=== PATIENT | female | born 1980 | race Caucasian/White ===

== ENCOUNTER 2024-02-14 09:57 | Emergency (ER) | payer MEDICARE, SELFPAY ==
[2024-02-14 10:21] VITALS: BP 117/69; PULSE 66; RESP 18; TEMP 36.6; O2SAT 100; BMI 22.7
[2024-02-14] MEDS: HYDROcodone-acetaminophen 7.5-325 mg Tablet 1 TAB PO (11:52)
--- NOTE | 2024-02-14 11:52 | ED_ITS ---
HPI - Dental/Oral General: Chief complaint: Dental/Oral Stated complaint: rt side of face swollen Time Seen by Provider: 02/14/24 11:35 Source: patient Mode of arrival: ambulatory Limitations: no limitations History of Present Illness: 43-year-old female states she has had so me right sided dental pain for the last 2 days states she has very poor dentition has a history of drug abuse states pains in right upper molar regions with some swelling denies any fever. Associated symptoms: Denies fever(s) Related Data Previous Rx's Medication Instructions Recorded cephalexin 500 mg capsule 500 mg PO TID 7 days #21 caps 02/14/24 Allergies Allergy/AdvReac Type Severity Reaction Status Date / Time Unable to Assess Allergy Unverified 02/14/24 10:29 Review of Systems Const: Denies: fever(s), chills, body aches or change in appetite ENMT: Reports: dental pain; Denies: throat pain Card: Denies: chest pain Resp: Denies: dyspnea GI: Denies: abdominal pain, nausea, vomiting or diarrhea Musc: Denies: neck pain or back pain Skin/Breast: Denies: rash Neuro: Denies: headache(s) Physical Exam Const: COMMON NORMALS: no acute distress, patient oriented x3 and healthy appearing HENMT: COMMON NORMALS: normocephalic and atraumatic HEAD & SCALP: normocephalic and atraumatic OTHER: Very poor dentition slight swelling to upper molar gumline with small abscess no trismus Eye: COMMON NORMALS: Equal, round and reactive pupils present and EOMs intact bilaterally PUPIL: Yes Equal, round and reactive pupils present Neck/C-Spine: COMMON NORMALS: full ROM and supple Chest: COMMONS NORMALS: normal inspection of the chest Resp: COMMON NORMALS: normal respiratory effort Cardio: COMMON NORMALS: regular rate, regular rhythm and No murmurs present (Cardio) RATE: regular rate RHYTHM: regular rhythm Extremity: COMMON NORMALS: normal to inspection and full ROM Neuro: COMMON NORMALS: patient oriented x3, moves all extremities and no focal motor deficits Psych: COMMON NORMALS: mental status grossly normal, Normal thought process present and cooperative THOUGHT PROCESS: Normal thought process present Skin: COMMON NORMALS: no rashes or lesions noted and no wounds GENERAL SKIN EXAM: no rashes or lesions noted Procedures Abscess I/D Site: other (dental) Side (if applicable): left Technique: needle aspiration Irrigation: No Packing used?: none Course Vital Signs: Vital signs: Vital Signs Temperature 97.8 F 02/14/24 10:21 Pulse Rate 66 02/14/24 10:21 Respiratory Rate 18 02/14/24 10:21 Blood Pressure 117/69 02/14/24 10:21 Pulse Oximetry 100 02/14/24 10:21 Oxygen Delivery Me thod Room Air 02/14/24 10:21 MDM - Dental/Oral Medical Decision Making Patient presents here with toothache with a small dental abscess did incise with a 18-gauge needle minimal drainage will start antibiotics follow-up with dentist return if worsening. No radiology studies performed this visit Discharge Plan Discharge Patient Disposition: Home Clinical Impression: Toothache Condition: Stable Prescriptions: New cephalexin 500 mg capsule 500 mg PO TID 7 Days Qty: 21 0RF Discharge Orders: Discharge ED (Routine); Ordered 02/14/24 Ordered By: Megan Bautista Patient Instructions: Toothache (ED) Coding Level of Care Code ED Compression Molding Machine Setter for Jose Alberto Briones
== END 2024-02-14 11:57 | disposition home or self-care (01) ==
PROVIDERS: Emergency Provider Emergency Medicine
DX: K08.89 Other specified disorders of teeth and supporting structures (principal)
CPT/HCPCS: 41800; 99283

== ENCOUNTER 2024-02-15 13:49 | Inpatient (IN) | payer MEDICARE, SELFPAY ==
--- NOTE | 2024-02-15 14:00 | ED.C_ITS ---
HPI - Psych 2 General: Chief Complaint: Psychiatric Symptoms Stated Complaint: mhe Time Seen by Provider: 02/15/24 13:51 Source: patient, EMS and police Mode of arrival: EMS Limitations: no limitations History of Present Illness: 43-year-old female who just recently mov ed here from [place] per family she has been out of her psychiatric meds patient had gotten out of her daughter's car today and traffic was walking into traffic please were called patient's had erratic behavior here she has flight of ideas. Associated symptoms: Reports delusions Related Data Previous Rx's Medication Instructions Recorded cephalexin 500 mg capsule 500 mg PO TID 7 days #21 caps 02/14/24 Allergies Allergy/AdvReac Type Severity Reaction Status Date / Time Unable to Assess Allergy Unverified 02/14/24 10:29 Review of Systems 2 Const: Denies: fever(s), chills, body aches or change in appetite ENMT: Denies: throat pain or dental pain Card: Denies: chest pain Resp: Denies: dyspnea GI: Denies: abdominal pain, nausea, vomiting or diarrhea Musc: Denies: neck pain or back pain Skin/Breast: Denies: rash Neuro: Denies: headache(s) Psych: Reports: mood swings, irritability and paranoia Physical Exam 2 Const: COMMON NORMALS: no acute distress, patient oriented x3 and healthy appearing HENMT: COMMON NORMALS: normocephalic and atraumatic HEAD & SCALP: n ormocephalic and atraumatic Eye: COMMON NORMALS: conjunctivae normal CONJUNCTIVA: Yes conjunctivae normal Neck/C-Spine: COMMON NORMALS: full ROM and supple Chest: COMMONS NORMALS: normal inspection of the chest Resp: COMMON NORMALS: normal respiratory effort, No retractions, No use of accessory muscles and clear to auscultation bilaterally AUSCULTATION: clear to auscultation bilaterally Cardio: COMMON NORMALS: regular rate RATE: regular rate Extremity: COMMON NORMALS: normal to inspection and full ROM Neuro: COMMON NORMALS: patient oriented x3, moves all extremities and no focal motor deficits Psych: COMMON NORMALS: mental status grossly normal SPEECH: Yes excessive MOOD & AFFECT: Yes elevated mood THOUGHT CONTENT: Yes delusions Skin: COMMON NORMALS: no rashes or lesions noted and no wounds GENERAL SKIN EXAM: no rashes or lesions noted Course 2 Vital Signs: Vital signs: Vital Signs Temperature 97.4 F L 02/15/24 14:14 Pulse Rate 86 02/15/24 14:14 Respiratory Rate 20 H 02/15/24 14:14 Blood Pressure 115/81 02/15/24 14:14 Pulse Oximetry 92 02/15/24 14:14 Oxygen Delivery Me thod Room Air 02/15/24 14:14 MDM - Psych Medical Decision Making Patient presents here with acute psychosis she is placed on a 96-hour hold medically cleared I spoke to psychiatrist will admit at this time. Medical Records I reviewed the patient's medical records. Lab Data I reviewed the patient's lab results. 02/15/24 14:15 02/15/24 14:15 Laboratory Results WBC 8.93 10^3/uL (3.29-11.43) 02/15/24 14:15 RBC 4.38 10^6/uL (3.85-5.65) 02/15/24 14:15 Hgb 8.80 g/dL (11.27-16.99) L 02/15/24 14:15 Hct 30.7 % (36-47) L 02/15/24 14:15 MCV 70.1 fl (85-98) L 02/15/24 14:15 MCH 20.1 pg (27-33) L 02/15/24 14:15 MCHC 28.7 g/dL (30-55) L 02/15/24 14:15 RDW 20.3 % (12.1-15.1) H 02/15/24 14:15 Plt Count 431 10^3/cmm (157-399) H 02/15/24 14:15 MPV 9.0 fL (7.4-10.4) 02/15/24 14:15 Neut % (Auto) 78.1 % 02/15/24 14:15 Lymph % (Auto) 12.7 % 02/15/24 14:15 Mingo % (Auto) 6.3 % 02/15/24 14:15 Eos % (Auto) 1.9 % 02/15/24 14:15 Baso % (Auto) 0.6 % 02/15/24 14:15 Neut # (Auto) 6.98 10^3/uL (1.8-7.7) 02/15/24 14:15 Lymph # (Auto) 1.1 10^3/uL (0.8-4.8) 02/15/24 14:15 Mingo # (Auto) 0.6 10^3/uL (0.2-0.9) 02/15/24 14:15 Eos # (Auto) 0.2 10^3/uL (0.0-0.8) 02/15/24 14:15 Baso # (Auto) 0.1 10^3/uL (0.0-0.1) 02/15/24 14:15 Nucleated RBC % (auto) 0 % 02/15/24 14:15 Nucleated RBCs # 0.0 /100WBC 02/15/24 14:15 Sodium 138 mmol/L (136-145) 02/15/24 14:15 Potassium 3.7 mmol/L (3.5-5.1) 02/15/24 14:15 Chloride 102 mmol/L (98-107) 02/15/24 14:15 Carbon Dioxide 25 mmol/L (22-29) 02/15/24 14:15 Anion Gap 14.7 (5-19) 02/15/24 14:15 BUN 15 mg/dL (6-20) 02/15/24 14:15 Creatinine 0.6 mg/dL (0.5-0.9) 02/15/24 14:15 GFR Calculation 108.1 mL/min (90-130) 02/15/24 14:15 Glucose 78 mg/dL (65-115) 02/15/24 14:15 Calculated Osmolality 286 mOsm/kg (285-295) 02/15/24 14:15 Calcium 8.1 mg/dL (8.5-10.5) L 02/15/24 14:15 Total Bilirubin 0.4 mg/dL (0.15-1.2) 02/15/24 14:15 AST 23 U/L (0-32) 02/15/24 14:15 ALT 16 U/L (0-33) 02/15/24 14:15 Alkaline Phosphatase 126 U/L (35-105) H 02/15/24 14:15 Total Protein 7.2 g/dL (6.6-8.7) 02/15/24 14:15 Albumin 4.1 g/dL (3.5-5.2) 02/15/24 14:15 Globulin 3.1 g/dL (1.3-4.6) 02/15/24 14:15 Salicylates 1.3 mg/dL (3-10) L 02/15/24 14:15 Acetaminophen < 5.0 ug/mL (10-30) L 02/15/24 14:15 Ethyl Alcohol 11 mg/dL (0-10) H 02/15/24 14:15 No radiology studies performed this visit Discharge Plan Discharge Patient Disposition: Admitted As Inpatient Clinical Impression: Acute psychosis Condition: Stable Prescriptions: No Action cephalexin 500 mg capsule 500 mg PO TID 7 Days Qty: 21 0RF Coding Level of Care Code ED Wealth Management Consultant for Jose Alberto Briones
[2024-02-15 14:14] VITALS: BP 115/81; PULSE 86; RESP 20; TEMP 36.3; O2SAT 92
[2024-02-15 14:24] LABS: Basophils # 0.1 10^3/uL (0.0-0.1); Basophils % 0.6 %; Eosinophils # 0.2 10^3/uL (0.0-0.8); Eosinophils % 1.9 %; Hematocrit 30.7 % (36-47); Lymphocytes # 1.1 10^3/uL (0.8-4.8); Lymphocytes % 12.7 %; Mean Corpuscular HGB Conc 28.7 g/dL (30-55); Mean Corpuscular Hemoglobin 20.1 pg (27-33); Mean Corpuscular Volume 70.1 fl (85-98); Monocytes # 0.6 10^3/uL (0.2-0.9); Monocytes % 6.3 %; Neutrophils # 6.98 10^3/uL (1.8-7.7); Neutrophils % 78.1 %; Nucleated Red Blood Cells % 0 %; Platelet Count 431 10^3/cmm (157-399); Red Blood Count 4.38 10^6/uL (3.85-5.65); Red Cell Distribution Width 20.3 % (12.1-15.1); White Blood Count 8.93 10^3/uL (3.29-11.43)
[2024-02-15 14:43] LABS: Acetaminophen < 5.0 ug/mL (10-30); Alanine Aminotransferase 16 U/L (0-33); Albumin Level 4.1 g/dL (3.5-5.2); Alcohol Level 11 mg/dL (0-10); Alkaline Phosphatase 126 U/L (35-105); Anion Gap 14.7 (5-19); Aspartate Amino Transferase 23 U/L (0-32); Blood Urea Nitrogen 15 mg/dL (6-20); Calcium 8.1 mg/dL (8.5-10.5); Carbon Dioxide 25 mmol/L (22-29); Chloride 102 mmol/L (98-107); Globulin 3.1 g/dL (1.3-4.6); Glomerular Filtration Rate 108.1 mL/min (90-130); Glucose 78 mg/dL (65-115); Osmolality Calculated 286 mOsm/kg (285-295); Potassium 3.7 mmol/L (3.5-5.1); Salicylate 1.3 mg/dL (3-10); Sodium 138 mmol/L (136-145); Total Bilirubin 0.4 mg/dL (0.15-1.2); Total Protein 7.2 g/dL (6.6-8.7)
--- NOTE | 2024-02-15 15:09 | PC.NURSE ---
pt report called to [facility] at 1506. Dr. Bautista notified and aware of pt's hemoglobin 8.8, Dr. Bautista stated pt would be okay to go to [facility].
[2024-02-15 15:43] VITALS: BP 95/56; PULSE 82; RESP 18; TEMP 36.6; O2SAT 97
[2024-02-15 15:48] VITALS: BP 115/81; PULSE 86; O2SAT 92
[2024-02-15] MEDS: acetaminophen 325 mg Tablet 650 MG PO (16:40)
[2024-02-15] MEDS: hyDROXYzine 25 mg Capsule 50 MG PO (16:40)
[2024-02-15] MEDS: nicotine 21 mg Patch 1 PATCH TRANSDERMA (16:41)
[2024-02-15 16:50] LABS: Glucose Point of Care 136 mg/dL (70-110)
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
--- NOTE | 2024-02-15 18:58 | PC.NURSE ---
96 hour hold rights read to patient at 1417 by warehouse stocker, Lauren Edouard RN. Patient made noises through the reading to avoid hearing me. I also tried to give her a copy of her rights but she would not accept them so I laid them on her gurney next to her, within her reach.
[2024-02-15 19:02] LABS: Glucose Point of Care 110 mg/dL (70-110)
[2024-02-15 20:07] VITALS: BP 98/66; PULSE 87; RESP 18; TEMP 37.2; O2SAT 98
[2024-02-15 20:10] LABS: Amphetamines Screen Urine Negative (Negative); Barbiturates Screen Urine Negative (Negative); Benzodiazepines Screen Urine Negative (Negative); Cocaine Screen Urine Negative (Negative); Opiate Screen Urine Negative (Negative); PCP Screen Urine Negative (Negative); THC Screen Urine Positive (Negative)
[2024-02-15] MEDS: trazodone 50 mg Tablet PO (21:15)
[2024-02-15] MEDS: haloperidol 5 mg Tablet PO (21:15)
[2024-02-15] MEDS: cephALEXin 500 mg Capsule PO (21:15)
[2024-02-16 06:00] VITALS: BP 122/86; PULSE 78; RESP 16; TEMP 36.8; O2SAT 100
[2024-02-16 07:27] LABS: Glucose Point of Care 79 mg/dL (70-110)
[2024-02-16] MEDS: cephALEXin 500 mg Capsule PO ×3 (08:30→20:56)
[2024-02-16] MEDS: nicotine 2 mg Gum BUCCAL ×3 (08:30→16:50)
[2024-02-16 11:30] LABS: Glucose Point of Care 117 mg/dL (70-110)
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
[2024-02-16 14:00] VITALS: BP 97/64; PULSE 86; RESP 16; TEMP 37.4; O2SAT 100
[2024-02-16 16:42] LABS: Glucose Point of Care 95 mg/dL (70-110)
[2024-02-16] MEDS: fluoxetine 20 mg Capsule PO (16:50)
[2024-02-16] MEDS: ibuprofen 600 mg Tablet PO (16:50)
[2024-02-16] MEDS: paliperidone ER 3 mg Tablet PO (16:50)
[2024-02-16 19:37] LABS: Glucose Point of Care 99 mg/dL (70-110)
[2024-02-16 20:37] VITALS: BP 107/66; PULSE 90; RESP 18; TEMP 37.2; O2SAT 100
[2024-02-16] MEDS: hyDROXYzine 25 mg Capsule 50 MG PO (20:57)
[2024-02-16] MEDS: trazodone 50 mg Tablet PO (20:57)
[2024-02-17 06:00] VITALS: BP 113/72; PULSE 92; RESP 18; TEMP 36.8; O2SAT 97
[2024-02-17 07:36] LABS: Glucose Point of Care 154 mg/dL (70-110)
[2024-02-17] MEDS: hyDROXYzine 25 mg Capsule 50 MG PO ×2 (08:19→21:26)
[2024-02-17] MEDS: paliperidone ER 3 mg Tablet PO (08:19)
[2024-02-17] MEDS: cephALEXin 500 mg Capsule PO ×3 (08:20→21:26)
[2024-02-17] MEDS: ibuprofen 600 mg Tablet PO (08:20)
[2024-02-17] MEDS: fluoxetine 20 mg Capsule PO (08:20)
[2024-02-17] MEDS: nicotine 2 mg Gum BUCCAL ×2 (08:20→14:57)
[2024-02-17] MEDS: insulin lispro 100 unit/1 mL SUBCUT (08:24)
[2024-02-17 11:39] LABS: Glucose Point of Care 89 mg/dL (70-110)
--- NOTE | 2024-02-17 13:34 | PC.OT ---
CANCEL OT ORDERS FOR WALKER AND EVAL; NURSING REPORTS PT IS AMBULATING WELL ON UNIT.
[2024-02-17 14:00] VITALS: BP 112/68; PULSE 90; RESP 17; TEMP 37; O2SAT 100
[2024-02-17 16:19] LABS: Glucose Point of Care 101 mg/dL (70-110)
--- NOTE | 2024-02-17 16:22 | PC.NURSE ---
[facility] in [place], [place] has agreed to take patient. Phone number is [phone]. Pretty notified that she is to contact Bev at this number.
[2024-02-17 19:44] VITALS: BP 101/63; PULSE 88; RESP 16; TEMP 36.6; O2SAT 100
[2024-02-17 19:52] LABS: Glucose Point of Care 169 mg/dL (70-110)
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
[2024-02-17] MEDS: trazodone 50 mg Tablet PO (21:26)
[2024-02-18 06:00] VITALS: BP 109/66; PULSE 80; RESP 16; TEMP 37; O2SAT 100
[2024-02-18] MEDS: nicotine 2 mg Gum BUCCAL (06:47)
[2024-02-18 07:43] LABS: Glucose Point of Care 79 mg/dL (70-110)
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
[2024-02-18] MEDS: paliperidone ER 3 mg Tablet PO (09:09)
[2024-02-18] MEDS: cephALEXin 500 mg Capsule PO ×3 (09:09→20:59)
[2024-02-18] MEDS: fluoxetine 20 mg Capsule PO (09:09)
[2024-02-18] MEDS: ondansetron 4 MG Tablet PO (09:13)
[2024-02-18 11:49] LABS: Glucose Point of Care 80 mg/dL (70-110)
[2024-02-18] MEDS: acetaminophen 325 mg Tablet 650 MG PO ×2 (12:02→20:59)
[2024-02-18 13:00] VITALS: BP 102/62; PULSE 80; RESP 17; TEMP 37.8; O2SAT 100
[2024-02-18 14:00] VITALS: BP 117/83; PULSE 86; RESP 16; TEMP 38.9; O2SAT 97
[2024-02-18] MEDS: ibuprofen 600 mg Tablet PO (15:58)
[2024-02-18 16:01] LABS: Glucose Point of Care 102 mg/dL (70-110)
[2024-02-18 20:13] VITALS: BP 99/61; PULSE 81; RESP 18; TEMP 38.6; O2SAT 98
[2024-02-18 20:20] LABS: Glucose Point of Care 115 mg/dL (70-110)
[2024-02-18] MEDS: hyDROXYzine 25 mg Capsule 50 MG PO (21:00)
[2024-02-18] MEDS: trazodone 50 mg Tablet PO (21:00)
[2024-02-18 22:49] LABS: Adenovirus Not Detected (NOT DETECT); Chlamydia Pneumoniae Not Detected (NOT DETECT); Coronavirus 229E,HKU1,NL63,OC4 Not Detected (NOT DETECT); Human Metapneumovirus Not Detected (NOT DETECT); Human Rhinovirus/Enterovirus Not Detected (NOT DETECT); Influenza A Not Detected (NOT DETECT); Influenza A H1 Not Detected (NOT DETECT); Influenza A H1-2009 Not Detected (NOT DETECT); Influenza A H3 Not Detected (NOT DETECT); Influenza B Not Detected (NOT DETECT); Mycoplasma Pneumoniae Not Detected (NOT DETECT); Parainfluenza Virus Type 1 Detected (NOT DETECT); Parainfluenza Virus Type 2 Not Detected (NOT DETECT); Parainfluenza Virus Type 3 Not Detected (NOT DETECT); Parainfluenza Virus Type 4 Not Detected (NOT DETECT); Respiratory Syncytial Virus A Not Detected (NOT DETECT); Respiratory Syncytial Virus B Not Detected (NOT DETECT); SARS-COV-2 Not Detected (NOT DETECT)
[2024-02-19 06:00] VITALS: BP 90/58; PULSE 74; RESP 20; TEMP 37; O2SAT 97
[2024-02-19 07:23] LABS: Glucose Point of Care 93 mg/dL (70-110)
[2024-02-19] MEDS: ondansetron 4 MG Tablet PO ×2 (07:36→17:37)
[2024-02-19] MEDS: cephALEXin 500 mg Capsule PO ×3 (08:01→20:04)
[2024-02-19] MEDS: nicotine 2 mg Gum BUCCAL ×2 (08:01→20:08)
[2024-02-19] MEDS: paliperidone ER 3 mg Tablet PO (08:01)
[2024-02-19] MEDS: fluoxetine 20 mg Capsule PO (08:01)
[2024-02-19] MEDS: loperamide 2 mg Capsule PO (08:03)
[2024-02-19 11:49] LABS: Glucose Point of Care 103 mg/dL (70-110)
[2024-02-19 14:00] VITALS: BP 120/77; PULSE 71; RESP 18; TEMP 37.1; O2SAT 100
[2024-02-19] MEDS: acetaminophen 325 mg Tablet 650 MG PO (14:08)
[2024-02-19 17:09] LABS: Glucose Point of Care 78 mg/dL (70-110)
[2024-02-19] MEDS: hyDROXYzine 25 mg Capsule 50 MG PO (17:37)
[2024-02-19 19:28] LABS: Glucose Point of Care 112 mg/dL (70-110)
[2024-02-19] MEDS: trazodone 50 mg Tablet PO (20:04)
[2024-02-19] MEDS: ibuprofen 600 mg Tablet PO (20:04)
[2024-02-19] MEDS: OLANZapine 5 mg ODT PO (20:05)
[2024-02-19] MEDS: cetylpyridinium Lozenge 1 EACH MUCOUS MEM (20:05)
[2024-02-19 20:24] VITALS: BP 106/69; PULSE 79; RESP 18; TEMP 36.8; O2SAT 97
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
--- NOTE | 2024-02-19 21:04 | PC.NURSE ---
IN BED RESTING. STAFF REPORT PT IS POSITIVE FOR FLU. C/O NAUSEA BUT IT IS TOO SOON TO GIVE ZOFRAN. DENIES SI/HI AND AVH AT THIS TIME. EVASIVE WITH ASSESSMENT. COUGH DROP GIVEN. IBUPROPHEN 600 MG GIVEN FOR PAIN IN BACK AND LEGS. RATES ANXIETY 3/10 AND DEPRESSION 0/10. VISTARIL 50 MG GIVEN FOR ANXIETY AND TRAZODONE GIVEN FOR SLEEP. SUPPORT VOICED.
[2024-02-20] MEDS: nicotine 2 mg Gum BUCCAL (05:45)
[2024-02-20 05:56] VITALS: BP 102/67; PULSE 73; RESP 16; TEMP 36.6; O2SAT 98
[2024-02-20 07:17] LABS: Glucose Point of Care 101 mg/dL (70-110)
[2024-02-20] MEDS: paliperidone ER 3 mg Tablet 6 MG PO (08:42)
[2024-02-20] MEDS: cephALEXin 500 mg Capsule PO ×3 (08:43→20:14)
[2024-02-20] MEDS: fluoxetine 20 mg Capsule PO (08:43)
[2024-02-20 10:57] LABS: Glucose Point of Care 102 mg/dL (70-110)
[2024-02-20] MEDS: nicotine 4 mg lozenge MUCOUS MEM ×3 (10:59→20:20)
[2024-02-20 14:00] VITALS: BP 124/76; PULSE 98; RESP 18; TEMP 36.6; O2SAT 97
[2024-02-20 17:02] LABS: Glucose Point of Care 103 mg/dL (70-110)
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
[2024-02-20] MEDS: hyDROXYzine 25 mg Capsule 50 MG PO (20:13)
[2024-02-20] MEDS: acetaminophen 325 mg Tablet 650 MG PO (20:13)
[2024-02-20] MEDS: trazodone 50 mg Tablet PO (20:15)
[2024-02-20 21:25] LABS: Glucose Point of Care 99 mg/dL (70-110)
[2024-02-20 22:00] VITALS: BP 101/66; PULSE 71; RESP 16; TEMP 37.1; O2SAT 97
[2024-02-21] MEDS: acetaminophen 325 mg Tablet 650 MG PO (04:36)
[2024-02-21 06:00] VITALS: BP 91/58; PULSE 78; RESP 18; TEMP 36.8; O2SAT 97
[2024-02-21] MEDS: nicotine 4 mg lozenge MUCOUS MEM (06:43)
[2024-02-21 07:50] LABS: Glucose Point of Care 73 mg/dL (70-110)
[2024-02-21] MEDS: paliperidone ER 3 mg Tablet 6 MG PO (08:24)
[2024-02-21] MEDS: fluoxetine 20 mg Capsule PO (08:24)
[2024-02-21] MEDS: cephALEXin 500 mg Capsule PO ×3 (08:24→20:58)
[2024-02-21 11:38] LABS: Glucose Point of Care 95 mg/dL (70-110)
[2024-02-21 14:00] VITALS: BP 106/64; PULSE 74; RESP 16; TEMP 36.9; O2SAT 100
[2024-02-21] MEDS: nicotine 2 mg Gum BUCCAL (14:47)
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
[2024-02-21 17:38] LABS: Glucose Point of Care 157 mg/dL (70-110)
[2024-02-21] MEDS: insulin lispro 100 unit/1 mL SUBCUT (17:38)
[2024-02-21] MEDS: trazodone 50 mg Tablet PO (20:58)
[2024-02-21] MEDS: hyDROXYzine 25 mg Capsule 50 MG PO (20:58)
[2024-02-21] MEDS: ibuprofen 600 mg Tablet PO (20:58)
[2024-02-21 21:21] LABS: Glucose Point of Care 137 mg/dL (70-110)
[2024-02-21 22:00] VITALS: BP 112/75; PULSE 71; RESP 16; TEMP 36.9; O2SAT 98
[2024-02-22] MEDS: nicotine 4 mg lozenge MUCOUS MEM ×4 (05:52→20:12)
[2024-02-22 06:00] VITALS: BP 111/65; PULSE 63; RESP 18; TEMP 36.7; O2SAT 95
[2024-02-22 07:55] LABS: Glucose Point of Care 93 mg/dL (70-110)
[2024-02-22] MEDS: fluoxetine 20 mg Capsule PO (08:11)
[2024-02-22] MEDS: paliperidone ER 3 mg Tablet 6 MG PO (08:11)
[2024-02-22] MEDS: cephALEXin 500 mg Capsule PO ×3 (08:11→20:07)
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
[2024-02-22] MEDS: nicotine 2 mg Gum BUCCAL (11:38)
[2024-02-22 11:52] LABS: Glucose Point of Care 119 mg/dL (70-110)
[2024-02-22 14:00] VITALS: BP 98/65; PULSE 71; RESP 16; TEMP 36.7; O2SAT 100
[2024-02-22 17:14] LABS: Glucose Point of Care 83 mg/dL (70-110)
[2024-02-22 19:53] VITALS: BP 118/66; PULSE 73; RESP 16; TEMP 36.8; O2SAT 97
[2024-02-22] MEDS: hyDROXYzine 25 mg Capsule 50 MG PO (20:07)
[2024-02-22] MEDS: trazodone 50 mg Tablet PO (20:07)
[2024-02-22 20:29] LABS: Glucose Point of Care 131 mg/dL (70-110)
[2024-02-23 04:19] VITALS: BP 105/71; PULSE 70; RESP 16; TEMP 36.4; O2SAT 99
[2024-02-23 07:21] LABS: Glucose Point of Care 92 mg/dL (70-110)
[2024-02-23] MEDS: acetaminophen 325 mg Tablet 650 MG PO (07:45)
[2024-02-23] MEDS: paliperidone ER 3 mg Tablet 6 MG PO (07:45)
[2024-02-23] MEDS: fluoxetine 20 mg Capsule PO (07:45)
[2024-02-23] MEDS: nicotine 4 mg lozenge MUCOUS MEM ×3 (07:46→20:03)
[2024-02-23] MEDS: hyDROXYzine 25 mg Capsule 50 MG PO ×2 (11:37→20:03)
[2024-02-23 11:42] LABS: Glucose Point of Care 81 mg/dL (70-110)
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
[2024-02-23 14:00] VITALS: BP 113/68; PULSE 78; RESP 16; TEMP 36.6; O2SAT 98
[2024-02-23] MEDS: insulin lispro 100 unit/1 mL SUBCUT (17:37)
[2024-02-23 17:42] LABS: Glucose Point of Care 161 mg/dL (70-110)
[2024-02-23 19:00] LABS: Glucose Point of Care 284 mg/dL (70-110)
[2024-02-23 19:34] VITALS: BP 96/58; PULSE 72; RESP 16; TEMP 36.9; O2SAT 98
[2024-02-23] MEDS: trazodone 50 mg Tablet PO (20:03)
[2024-02-24 06:00] VITALS: BP 117/74; PULSE 68; RESP 18; TEMP 36.8; O2SAT 99
[2024-02-24] MEDS: nicotine 4 mg lozenge MUCOUS MEM ×5 (06:20→21:35)
[2024-02-24 07:25] LABS: Glucose Point of Care 121 mg/dL (70-110)
[2024-02-24] MEDS: paliperidone ER 3 mg Tablet 6 MG PO (08:57)
[2024-02-24] MEDS: fluoxetine 20 mg Capsule PO (08:57)
--- NOTE | 2024-02-24 11:28 | PC.NURSE ---
Patient left the unit on 02/24/24 at 1106 with [facility] Department to attend court.
--- NOTE | 2024-02-24 12:02 | PC.NURSE ---
Patient returned from court, escorted by [facility], returned to unit on 02/24/24 at 1159.
[2024-02-24 12:10] LABS: Glucose Point of Care 76 mg/dL (70-110)
[2024-02-24 14:00] VITALS: BP 92/58; PULSE 107; RESP 18; TEMP 37.1; O2SAT 100
--- NOTE | 2024-02-24 16:47 | PC.NURSE ---
Patient approached the nurse station and had a verbal outburst after a phone call with her mother. Patient reported that her mother had stated that she wished to become the patient's power of privacy attorney. When the patient denied this request the mother reportedly said If you will not let me be power of privacy attorney then I don't need to be in your life at all and hung up on the patient. The patient began crying and approached the nurses station screaming Where is the doctor, I need the doctor now Nurses were able to de-escalate the patient by listening and talking with her. Patient requests that her mother be removed from her PHI.
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
[2024-02-24 17:24] LABS: Glucose Point of Care 122 mg/dL (70-110)
[2024-02-24 19:29] LABS: Glucose Point of Care 92 mg/dL (70-110)
[2024-02-24 20:29] VITALS: BP 128/73; PULSE 90; RESP 18; TEMP 36.9; O2SAT 99
[2024-02-24] MEDS: hyDROXYzine 25 mg Capsule 50 MG PO (21:35)
[2024-02-24] MEDS: trazodone 50 mg Tablet PO (21:35)
[2024-02-25 06:00] VITALS: BP 101/70; PULSE 81; RESP 16; TEMP 36.6; O2SAT 96
[2024-02-25] MEDS: nicotine 4 mg lozenge MUCOUS MEM ×4 (06:29→20:30)
[2024-02-25 07:19] LABS: Glucose Point of Care 112 mg/dL (70-110)
[2024-02-25] MEDS: paliperidone ER 3 mg Tablet 6 MG PO (08:00)
[2024-02-25] MEDS: fluoxetine 20 mg Capsule PO (08:00)
[2024-02-25 11:47] LABS: Glucose Point of Care 71 mg/dL (70-110)
[2024-02-25 14:00] VITALS: BP 102/66; PULSE 65; RESP 18; TEMP 36.6; O2SAT 96
[2024-02-25] MEDS: paliperidone palmitate 234 mg Syringe IM (14:09)
--- NOTE | 2024-02-25 14:09 | PC.NURSE ---
KERVIN SUSTENNA 234 MG GIVEN IM ORDERED BY PHYSICIAN, INJECTION GIVEN IN LEFT DELTOID. TOLERATED INJECTION WELL. WILL CONT TO MONITOR INJECTION SITE FOR ANY REDNESS, SWELLING, OR IRRITATION LOT [id number] EXP
[2024-02-25 17:08] LABS: Glucose Point of Care 94 mg/dL (70-110)
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
[2024-02-25 19:33] LABS: Glucose Point of Care 108 mg/dL (70-110)
[2024-02-25 20:07] VITALS: BP 103/58; PULSE 74; RESP 18; TEMP 36.5; O2SAT 97
[2024-02-25] MEDS: hyDROXYzine 25 mg Capsule 50 MG PO (20:30)
[2024-02-25] MEDS: trazodone 50 mg Tablet PO (20:30)
[2024-02-26 06:00] VITALS: BP 139/80; PULSE 62; RESP 16; TEMP 36.3; O2SAT 98
[2024-02-26] MEDS: nicotine 4 mg lozenge MUCOUS MEM ×6 (06:40→20:42)
[2024-02-26 07:28] LABS: Glucose Point of Care 111 mg/dL (70-110)
[2024-02-26] MEDS: paliperidone ER 3 mg Tablet 6 MG PO (08:22)
[2024-02-26] MEDS: fluoxetine 20 mg Capsule PO (08:22)
--- NOTE | 2024-02-26 11:24 | PC.NURSE ---
DR. MATHEW GAVE ORDERS TO APPROVE PT TO HAVE DOUBLE NICOTINE. 21 MG NICOTINE APPLIED TO RIGHT ARM.
[2024-02-26 11:47] LABS: Glucose Point of Care 96 mg/dL (70-110)
[2024-02-26 14:00] VITALS: BP 133/67; PULSE 110; RESP 17; TEMP 37.2; O2SAT 97
[2024-02-26] MEDS: nicotine 21 mg Patch 1 PATCH TRANSDERMA (16:09)
--- NOTE | 2024-02-26 16:10 | PC.NURSE ---
NICOTINE PATCH CAME OFF IN SHOWER, PATCH WAS WASTED AND ANOTHER PATCH APPLIED. PT EDUCATED ON SHOWERING WITH PATCH, VERBALIZED UNDERSTANDING.
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
[2024-02-26 16:50] LABS: Glucose Point of Care 85 mg/dL (70-110)
[2024-02-26 20:05] LABS: Glucose Point of Care 81 mg/dL (70-110)
[2024-02-26 20:40] VITALS: BP 120/52; PULSE 70; RESP 17; TEMP 36.9; O2SAT 99
[2024-02-26] MEDS: hyDROXYzine 25 mg Capsule 50 MG PO (20:42)
[2024-02-26] MEDS: trazodone 50 mg Tablet PO (20:42)
[2024-02-27 06:00] VITALS: BP 107/73; PULSE 75; RESP 16; TEMP 36.9; O2SAT 99
[2024-02-27] MEDS: nicotine 4 mg lozenge MUCOUS MEM ×5 (06:01→19:28)
[2024-02-27 07:41] LABS: Glucose Point of Care 99 mg/dL (70-110)
[2024-02-27] MEDS: hyDROXYzine 25 mg Capsule 50 MG PO ×2 (08:38→20:11)
[2024-02-27] MEDS: fluoxetine 20 mg Capsule PO (08:38)
[2024-02-27] MEDS: acetaminophen 325 mg Tablet 650 MG PO (08:38)
[2024-02-27] MEDS: paliperidone ER 3 mg Tablet 6 MG PO (08:38)
[2024-02-27 10:33] LABS: Glucose Point of Care 35 mg/dL (70-110)
[2024-02-27 10:44] LABS: Glucose Point of Care 143 mg/dL (70-110)
[2024-02-27] MEDS: nicotine 21 mg Patch 1 PATCH TRANSDERMA (11:23)
--- NOTE | 2024-02-27 11:30 | PC.NURSE ---
hypoglycemia Patient notified another patient to get a nurse. Staff arrived. Patient's VS and BG were obtained. Patient's VS were within normal limits. Patient's blood glucose was 35. Patient was able to communicate and swallow. Patient given juice, peanut butter and crackers. Staff stayed with patient. Patient's BG rechecked and was over 130. Patient sweaty. Patient given shower supplies. This nurse checked on patient at 1130. Patient resting. Patient told this nurse that she feels like her blood sugar is fine. Patient given nicotine patch.
[2024-02-27 11:59] LABS: Glucose Point of Care 131 mg/dL (70-110)
[2024-02-27 14:00] VITALS: BP 96/58; PULSE 94; RESP 18; TEMP 36.9; O2SAT 100
[2024-02-27 15:58] LABS: Glucose Point of Care 137 mg/dL (70-110)
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
[2024-02-27 20:06] LABS: Glucose Point of Care 165 mg/dL (70-110)
[2024-02-27] MEDS: trazodone 50 mg Tablet PO (20:11)
[2024-02-27 20:23] VITALS: BP 96/65; PULSE 102; RESP 18; O2SAT 98
[2024-02-27] MEDS: ibuprofen 600 mg Tablet PO (23:31)
[2024-02-28] MEDS: nicotine 4 mg lozenge MUCOUS MEM ×8 (02:22→22:31)
[2024-02-28] MEDS: benztropine 1 mg Tablet PO (05:08)
[2024-02-28] MEDS: hyDROXYzine 25 mg Capsule 50 MG PO ×2 (05:08→22:31)
[2024-02-28 06:00] VITALS: BP 88/50; PULSE 88; RESP 17; O2SAT 99
[2024-02-28] MEDS: nicotine 21 mg Patch 1 PATCH TRANSDERMA (07:45)
[2024-02-28 07:46] LABS: Glucose Point of Care 98 mg/dL (70-110)
[2024-02-28] MEDS: paliperidone ER 3 mg Tablet 6 MG PO (07:46)
[2024-02-28] MEDS: ibuprofen 600 mg Tablet PO (07:46)
[2024-02-28] MEDS: fluoxetine 20 mg Capsule PO (07:46)
[2024-02-28 11:25] LABS: Glucose Point of Care 108 mg/dL (70-110)
[2024-02-28 14:00] VITALS: BP 88/61; PULSE 85; RESP 20; TEMP 37.1; O2SAT 99
[2024-02-28 16:51] LABS: Glucose Point of Care 124 mg/dL (70-110)
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
[2024-02-28 20:03] LABS: Glucose Point of Care 75 mg/dL (70-110)
[2024-02-28 20:38] VITALS: BP 101/93; PULSE 74; RESP 16; O2SAT 99
[2024-02-28] MEDS: trazodone 50 mg Tablet PO (22:31)
[2024-02-29] MEDS: nicotine 4 mg lozenge MUCOUS MEM ×7 (05:04→20:16)
[2024-02-29 06:00] VITALS: BP 96/50; PULSE 67; RESP 16; O2SAT 100
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
[2024-02-29 08:07] LABS: Glucose Point of Care 89 mg/dL (70-110)
[2024-02-29] MEDS: paliperidone ER 3 mg Tablet 6 MG PO (08:15)
[2024-02-29] MEDS: fluoxetine 20 mg Capsule PO (08:15)
[2024-02-29 11:40] LABS: Glucose Point of Care 121 mg/dL (70-110)
[2024-02-29 14:00] VITALS: BP 98/62; PULSE 60; RESP 16; TEMP 36.8; O2SAT 100
[2024-02-29 16:53] LABS: Glucose Point of Care 102 mg/dL (70-110)
[2024-02-29 19:17] LABS: Glucose Point of Care 60 mg/dL (70-110)
[2024-02-29 20:00] VITALS: BP 126/76; PULSE 84; RESP 16; TEMP 36.9; O2SAT 97
[2024-02-29] MEDS: trazodone 50 mg Tablet PO (20:16)
[2024-02-29] MEDS: hyDROXYzine 25 mg Capsule 50 MG PO (20:16)
[2024-03-01] MEDS: nicotine 4 mg lozenge MUCOUS MEM ×6 (05:33→16:34)
[2024-03-01 06:00] VITALS: BP 102/68; PULSE 63; RESP 18; TEMP 36.8; O2SAT 100
--- NOTE | 2024-03-01 07:32 | PC.NURSE ---
At 1907 pts blood sugar was 60. Pt was offered orange juice and she refused. Pt stated that she would just eat pudding. 2 pudding sgiven and eten by pt. This nurse rounded 30 minutes later and pt voiced that she was feeling better. Pts blood sugar was taken at 0715 this morning was 84.
[2024-03-01 07:34] LABS: Glucose Point of Care 84 mg/dL (70-110)
[2024-03-01] MEDS: paliperidone ER 3 mg Tablet 6 MG PO (08:08)
[2024-03-01] MEDS: fluoxetine 20 mg Capsule PO (08:08)
[2024-03-01 11:37] LABS: Glucose Point of Care 79 mg/dL (70-110)
[2024-03-01 14:00] VITALS: BP 105/62; PULSE 74; RESP 16; TEMP 37.2; O2SAT 100
[2024-03-01 16:32] LABS: Glucose Point of Care 143 mg/dL (70-110)
--- NOTE | 2024-03-01 18:31 | PC.NURSE ---
CALLED PHARMACY TWICE THIS SHIFT TO CHECK ON THE AVAILABILITY OF INVEGA 156 MG IM INJECTION THAT WAS TO BE GIVEN ON Friday02/29/2024. PHARMACY STATES THEY STILL DO NOT HAVE THE DRUG AVAILABLE BUT MAY BE IN TOMORROW. RESCHEDULED MEDICATION FOR 03/02/24 AT 1000 AM. EDUCATED PT ON MEDICATION NOT BEING AVAILABLE BUT WILL GIVE WHEN IT IS. ALL QUESTIONS ANSWERED AND SUPPORT VOICED.
--- NOTE | 2024-03-01 20:01 | P.NPUPN_ITS ---
Subjective NPU 2 Subjective: Patient is a 43-year-old female admitted with psychosis in the context of chronic methamphetamine use. The patient had stated that she was fine and continue to minimize any problems that may have been associated with her methamphetamine use. She had reported that she would like to leave here as soon as possible. She continued to report that she had been homeless for an extended period of time. She had reported that she had also suffered a traumatic brain injury. The patient had reported that she had been in [place] prior to arriving here. She had reported no side effects from her current medication. Mental Status Exam 2 MSE Comments: This is a well-nourished well-developed white female in hospital scrubs with limited grooming but adequate eye contact. No abnormal movements except for mild psychomotor retardation. She was cooperative with exam in mild to moderate distress. Speech was mostly decreased rate and volume. Mood described as okay. Her affect was restricted. Thought process was linear and organized. Thought content: patient denies suicidal or homicidal ideation, Continued guardedness was appreciated. she denies current auditory or visual hallucinations. Attention and concentration are intact and memory appeared mostly reliable , but none were formally tested. She is alert and oriented x 3. Insight and judgment are impaired. Impulse control is impaired. Vitals/I&O/Wt Last Vital Signs Temp 98.9 F 03/01/24 14:00 Pulse 74 03/01/24 14:00 Resp 16 03/01/24 14:00 BP 105/62 03/01/24 14:00 Pulse Ox 100 03/01/24 14:00 O2 Del Method Room Air 03/01/24 06:00 Weight last 48 hrs Weight 79.197 kg Data NPU 02/15/24 14:15 02/15/24 14:15 A&P Assessment and plan (1) Acute psychosis: (2) History of schizophrenia: (3) Methamphetamine use disorder, severe, dependence: Plan This is a 43-year-old white woman with a history of trauma mental health and addiction with genetic loading for mental health and addiction issues who presents from [place] having been out of treatment a lot secondary to being homeless she reports. The patient presents reporting history of schizophrenia, characterized by auditory and visual hallucinations, and paranoia. There is also a diagnosis of bipolar disorder and anxiety, with episodes of severe anxiety reported. The patient has a history of substance use disorder, specifically methamphetamine addiction, and a significant history of legal issues related to drug use. Additionally, the patient has a history of depression with suicidal ideation and past suicide attempts. 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 1. Restarted Prozac and initiated Invega. Increased Invega to 6 mg p.o. daily. Initiated Invega Sustenna injection 234 mg IM to the deltoid Given 02/25/2024. Will give next injection 02/29/2024 with will be the earliest that can be given to give flexibility for discharge if necessary. But her first monthly injection will be due 03/28/2024. 2. Will obtain collateral information. 3. Continue individual, group and milieu therapy. 4. Continue every 15 minute checks for safety. 5. Encourage sober living treatment after discharge at the highest level care to which she is willing to commit. 6. Filed 21-day hold paperwork. Discussed having a family meeting on Friday but she reports her mother might come tomorrow. Still awaiting connection with mother about treatment moving forward guardianship and those concerns to allow us to have some sense of how to proceed with a 21-day hold excetra. 21-day hold hearing held and patient placed on a 21-day hold. Involuntary Hold Information 2 96 Hour Hold: 96 Hour Involuntary Admission: Yes 96 Hour Hold Ending Date: 02/22/23 96 Hour Hold Ending Time: 00:01 Other Hold: Hold End Date: 03/16/24 Attestations NPU 2 Medical Necessity Statement*: Inpatient hospitalization is medically necessary and the clinically appropriate intervention at this time. We will monitor medications and make changes as indicated. Likely length of stay is 2-3 days. Coding Level of Care Code Acute Code for Chg Fwd Diagnoses Acute psychosis F23 History of schizophrenia Z86.59 Methamphetamine use disorder, severe, dependence F15.20
[2024-03-01 20:27] LABS: Glucose Point of Care 142 mg/dL (70-110)
[2024-03-01] MEDS: nicotine 2 mg Gum BUCCAL (20:42)
[2024-03-01] MEDS: hyDROXYzine 25 mg Capsule 50 MG PO (20:42)
[2024-03-01] MEDS: trazodone 50 mg Tablet PO (20:42)
[2024-03-01 21:02] VITALS: BP 99/72; PULSE 71; RESP 18; TEMP 36.9; O2SAT 98
[2024-03-02 06:00] VITALS: BP 121/82; PULSE 77; RESP 16; TEMP 36.6; O2SAT 98
[2024-03-02] MEDS: nicotine 2 mg Gum BUCCAL ×4 (06:21→14:16)
[2024-03-02 07:11] LABS: Glucose Point of Care 92 mg/dL (70-110)
[2024-03-02] MEDS: nicotine 21 mg Patch 1 PATCH TRANSDERMA (08:14)
[2024-03-02] MEDS: fluoxetine 20 mg Capsule PO (08:14)
[2024-03-02] MEDS: paliperidone ER 3 mg Tablet 6 MG PO (08:14)
[2024-03-02] MEDS: hyDROXYzine 25 mg Capsule 50 MG PO ×2 (08:27→20:28)
--- NOTE | 2024-03-02 08:34 | PC.NURSE ---
Morning assessment Patient reports anxiety this morning. Patient denies suicidal thoughts, hallucinations, and depression. Administered vistaril 50mg PO to patient.
[2024-03-02 11:42] LABS: Glucose Point of Care 121 mg/dL (70-110)
[2024-03-02 14:00] VITALS: BP 84/54; PULSE 81; RESP 17; TEMP 37.4; O2SAT 96
[2024-03-02] MEDS: nicotine 4 mg lozenge MUCOUS MEM ×2 (15:28→20:28)
[2024-03-02] MEDS: paliperidone palmitate 156 mg Syringe IM (15:47)
--- NOTE | 2024-03-02 15:55 | PC.NURSE ---
Invega 156mg/mL administered into patient's deltoid muscle. Patient tolerated well. Lot: [id number] EXP: Apr 2025
[2024-03-02 17:00] LABS: Glucose Point of Care 84 mg/dL (70-110)
--- NOTE | 2024-03-02 19:04 | P.NPUPN_ITS ---
Subjective NPU 2 Subjective: Patient is a 43-year-old female admitted with psychosis in the context of chronic methamphetamine use. Patient received her second Invega Sustenna at 156 mg today. She had reported that her medicated yet to be fully activated and was informed that her monthly shot a month from today may not be covered and in that case the oral Invega would be restarted and lieu of the intramuscular injection. Patient had reported that she had been feeling better. She had expressed having battled methamphetamine use for several years with a brief period of sobriety in the distant past. She had reported that her mood had been better. She had endorsed a history of a traumatic brain injury as well that had led her to have struggles with more impulsivity and problems with short-term memory. She had indeed endorsed a history of struggles with remembering to take her medication. Mental Status Exam 2 MSE Comments: This is a well-nourished well-developed white female in hospital scrubs with limited grooming but adequate eye contact. No abnormal movements except for mild psychomotor retardation. She was cooperative with exam in mild to moderate distress. Speech was mostly decreased rate and volume. Mood described as okay. Her affect was restricted. Thought process was linear and organized. Thought content: patient denies suicidal or homicidal ideation. She appeared less guarded on interview. she denies current auditory or visual hallucinations. Attention and concentration are intact and memory appeared mostly reliable , but none were formally tested. She is alert and oriented x 3. Insight and judgment are improving. Impulse control is fair. Vitals/I&O/Wt Last Vital Signs Temp 99.3 F 03/02/24 14:00 Pulse 81 03/02/24 14:00 Resp 17 03/02/24 14:00 BP 84/54 03/02/24 14:00 Pulse Ox 96 03/02/24 14:00 O2 Del Method Room Air 03/02/24 06:00 Data NPU 02/15/24 14:15 02/15/24 14:15 A&P Assessment and plan (1) Acute psychosis: (2) History of schizophrenia: (3) Methamphetamine use disorder, severe, dependence: Plan This is a 43-year-old white woman with a history of trauma mental health and addiction with genetic loading for mental health and addiction issues who presents from [place] having been out of treatment a lot secondary to being homeless she reports. The patient presents reporting history of schizophrenia, characterized by auditory and visual hallucinations, and paranoia. There is also a diagnosis of bipolar disorder and anxiety, with episodes of severe anxiety reported. The patient has a history of substance use disorder, specifically methamphetamine addiction, and a significant history of legal issues related to drug use. Additionally, the patient has a history of depression with suicidal ideation and past suicide attempts. 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 1. Patient given 2nd shot invega on 02/21/2024, will reduce oral invega to 3mg daily. Continue Prozac 20mg daily. But her first monthly injection will be due 03/28/2024. 2. Will obtain collateral information. 3. Continue individual, group and milieu therapy. 4. Continue every 15 minute checks for safety. 5. Encourage sober living treatment after discharge at the highest level care to which she is willing to commit. 6. Patient on 21 day hold, likely d/c tommorow. Referral for [facility]. Involuntary Hold Information 2 96 Hour Hold: 96 Hour Involuntary Admission: Yes 96 Hour Hold Ending Date: 02/22/23 96 Hour Hold Ending Time: 00:01 Other Hold: Hold End Date: 03/16/24 Attestations NPU 2 Medical Necessity Statement*: Inpatient hospitalization is medically necessary and the clinically appropriate intervention at this time. We will monitor medications and make changes as indicated. Likely length of stay is 2-3 days. Coding Level of Care Code Acute Code for Chg Fwd Diagnoses Acute psychosis F23 History of schizophrenia Z86.59 Methamphetamine use disorder, severe, dependence F15.20
[2024-03-02 19:15] LABS: Glucose Point of Care 108 mg/dL (70-110)
[2024-03-02 19:25] VITALS: BP 106/71; PULSE 73; RESP 16; TEMP 36.9; O2SAT 99
[2024-03-02] MEDS: trazodone 50 mg Tablet PO (20:28)
[2024-03-03] MEDS: nicotine 4 mg lozenge MUCOUS MEM ×4 (03:34→14:05)
[2024-03-03 06:00] VITALS: BP 104/69; PULSE 71; RESP 16; TEMP 36.9; O2SAT 98
[2024-03-03 07:15] LABS: Glucose Point of Care 104 mg/dL (70-110)
[2024-03-03] MEDS: nicotine 21 mg Patch 1 PATCH TRANSDERMA (07:16)
[2024-03-03] MEDS: paliperidone ER 3 mg Tablet PO (09:01)
[2024-03-03] MEDS: fluoxetine 20 mg Capsule PO (09:01)
[2024-03-03 11:18] LABS: Glucose Point of Care 111 mg/dL (70-110)
[2024-03-03] MEDS: OLANZapine 5 mg ODT PO (11:25)
[2024-03-03 14:00] VITALS: BP 104/59; PULSE 68; RESP 18; TEMP 37.1; O2SAT 100
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
[2024-03-03 14:40] VITALS: BP 104/69; PULSE 71; RESP 16; TEMP 36.9; O2SAT 98
--- NOTE | 2024-03-03 15:47 | DCPLANNER ---
IMM completed 03/03/2024 @ 9650.
== END 2024-03-03 15:03 | disposition home or self-care (01) | DRG 885 ==
LOC: ER 14:47 → NP 15:04
PROVIDERS: Admitting Provider Psychiatry & Neurology Psychiatry; Emergency Provider Emergency Medicine; Visit Provider Psychiatry & Neurology Psychiatry
DX: F23 Brief psychotic disorder (principal); F15.20 Other stimulant dependence, uncomplicated; Z59.00 Homelessness unspecified; Z86.59 Personal history of other mental and behavioral disorders; F17.210 Nicotine dependence, cigarettes, uncomplicated; T50.916A Underdosing of multiple unspecified drugs, medicaments and biological substances, initial encounter; Z91.128 Patient's intentional underdosing of medication regimen for other reason; Z91.410 Personal history of adult physical and sexual abuse; Z62.810 Personal history of physical and sexual abuse in childhood; Z91.51 Personal history of suicidal behavior; Z91.52 Personal history of nonsuicidal self-harm; Z87.820 Personal history of traumatic brain injury; E11.9 Type 2 diabetes mellitus without complications; Z98.84 Bariatric surgery status; Z81.8 Family history of other mental and behavioral disorders
CPT/HCPCS: 36415; 36416; 41800; 80053; 80306; 80307; 82962; 85025; 87486; 87581; 87633; 96372; 97150; 97165; 99283; 99285; J1610; J1815; Q0162

== ENCOUNTER 2024-03-28 12:48 | Emergency (ER) | payer MEDICARE, SELFPAY ==
[2024-03-28 12:50] VITALS: BP 86/53; PULSE 73; RESP 16; TEMP 36.8; O2SAT 94; BMI 23.3
[2024-03-28 13:25] LABS: Bilirubin Urine 1+ (Negative); Blood Urine Negative (Negative); Glucose Urine UA Negative (Normal); Ketones Urine Trace (Negative); Leukocyte Esterase Urine 1+ (Negative); Nitrate Urine Positive (Negative); Protein Urine Trace (Negative); Urine Appearance Cloudy (CLEAR)
[2024-03-28 13:27] LABS: HCG Qualitative Urine. Negative (Negative)
[2024-03-28 13:32] LABS: Amphetamines Screen Urine Negative (Negative); Barbiturates Screen Urine Negative (Negative); Benzodiazepines Screen Urine Positive (Negative); Cocaine Screen Urine Negative (Negative); Opiate Screen Urine Negative (Negative); PCP Screen Urine Negative (Negative); THC Screen Urine Positive (Negative)
[2024-03-28 13:33] LABS: Add Urine Microscopic? YES; Bacteria Urine 3+ /hpf; Hyaline Casts Urine 2.05 /lpf; RBC Urine 0-2 /hpf (0-2); WBC Urine 0-5 /hpf (0-5)
[2024-03-28 13:35] LABS: Specific Gravity, Urine 1.041 (1.005-1.030); Urine Color Orange (Yellow)
--- NOTE | 2024-03-28 13:35 | W.ED.PSYCHS ---
HPI - Psych General: Chief Complaint: Psychiatric Symptoms Stated Complaint: MHE Time Seen by Provider: 03/28/24 13:07 History of Present Illness: This patient is a 44 year old presenting with auditory hallucinations. She lives in a half-way and says that she would rather live by herself and have her own space - especially since the voices are coming back. She denies SI or HI. She denies visual hallucinations. She was on the inpatient unit her nearly a month ago and was started on invega sustena which seemed to help a lot. She is due for her next dose in 4 days. She demonstrated some pressure speech but was redirectable and cooperative. She requested a nicotine patch and this was provided. Related Data Home Medications ?Medication ?Instructions ?Recorded ?Confirmed fluoxetine 40 mg capsule 40 mg PO DAILY 03/28/24 03/28/24 fluticasone propionate 50 2 spray intranasal DAILY 03/28/24 03/28/24 mcg/actuation nasal spray,suspension metronidazole 500 mg tablet 500 mg PO TID 03/28/24 03/28/24 naproxen 500 mg tablet 500 mg PO BID 03/28/24 03/28/24 oxybutynin chloride 5 mg tablet 5 mg PO DAILY 03/28/24 03/28/24 Previous Rx's ?Medication ?Instructions ?Recorded paliperidone palmitate 156 mg/mL 156 mg IM Q30D #1 mL 03/03/24 intramuscular syringe (Invega Sustenna) Allergies Allergy/AdvReac Type Severity Reaction Status Date / Time aspirin Allergy Unknown Verified 02/15/24 16:40 Physical Exam Const: COMMON NORMALS: no acute distress, patient oriented x3, no limitations and alert GENERAL APPEARANCE: cooperative and comfortable HENMT: HEAD & SCALP: normal to inspection FACE & SINUS: normal facial exam Eye: GENERAL EYE: appearance normal, both eyes and all related structures Neck/C-Spine: COMMON NORMALS: supple, no meningeal signs and no JVD Chest: COMMONS NORMALS: normal inspection of the chest Resp: COMMON NORMALS: normal respiratory effort, No use of accessory muscles and clear to auscultation bilaterally AUSCULTATION: clear to auscultation bilaterally Cardio: COMMON NORMALS: no JVD, regular rate, regular rhythm and No murmurs present (Cardio) RATE: regular rate RHYTHM: regular rhythm GI: COMMON NORMALS: Normal to inspection, nondistended, normoactive bowel sounds present, Soft to palpation and non-tender INSPECTION: Yes normal to inspection AUSCULTATION: Yes normoactive bowel sounds PALPATION: Yes Soft to palpation Back/Pelvis: COMMON NORMALS: thoracic and lumbar spine normal to inspection Extremity: COMMON NORMALS: normal to inspection Neuro: COMMON NORMALS: patient oriented x3, moves all extremities, no focal motor deficits and no sensory deficits noted SENSORIUM/ORIENTATION: Yes alert MENINGEAL SIGNS: Yes no meningeal signs Psych: COMMON NORMALS: mental status grossly normal, cooperative and normal affect ACTIVITY/MOTOR BEHAVIOR: Yes fidgeting THOUGHT PROCESS: disorganized Skin: COMMON NORMALS: no rashes or lesions noted and turgor normal GENERAL SKIN EXAM: no rashes or lesions noted and turgor normal Course Vital Signs: Vital signs: Vital Signs Temperature 98.2 F 03/28/24 12:50 Pulse Rate 72 03/28/24 16:24 Respiratory Rate 16 03/28/24 12:50 Blood Pressure 97/58 03/28/24 16:24 Pulse Oximetry 98 03/28/24 16:24 Oxygen Delivery Me thod Room Air 03/28/24 12:50 MDM - Psych Medical Decision Making Patient is nearly due for her next susterna injection - she was given Zydis in the ED which calmed her nicely. She felt safe to go back to her half-way. She is currently being treated for a UTI. She was also noted to be fairly anemic - this is slightly lower than on her prior visit - but she is not symptomatic and this too can be managed as an outpatient. Lab Data 03/28/24 13:24 03/28/24 13:24 Laboratory Results WBC 8.19 10^3/uL (3.29-11.43) 03/28/24 13:24 RBC 3.47 10^6/uL (3.85-5.65) L 03/28/24 13:24 Hgb 6.90 g/dL (11.27-16.99) L 03/28/24 13:24 Hct 24.3 % (36-47) L 03/28/24 13:24 MCV 70.0 fl (85-98) L 03/28/24 13:24 MCH 19.9 pg (27-33) L 03/28/24 13:24 MCHC 28.4 g/dL (30-55) L 03/28/24 13:24 RDW 19.5 % (12.1-15.1) H 03/28/24 13:24 Plt Count 347 10^3/cmm (157-399) 03/28/24 13:24 MPV 9.4 fL (7.4-10.4) 03/28/24 13:24 Neut % (Auto) 72.2 % 03/28/24 13:24 Lymph % (Auto) 16.5 % 03/28/24 13:24 [place] % (Auto) 6.8 % 03/28/24 13:24 Eos % (Auto) 3.1 % 03/28/24 13:24 Baso % (Auto) 0.9 % 03/28/24 13:24 Neut # (Auto) 5.92 10^3/uL (1.8-7.7) 03/28/24 13:24 Lymph # (Auto) 1.4 10^3/uL (0.8-4.8) 03/28/24 13:24 [place] # (Auto) 0.6 10^3/uL (0.2-0.9) 03/28/24 13:24 Eos # (Auto) 0.3 10^3/uL (0.0-0.8) 03/28/24 13:24 Baso # (Auto) 0.1 10^3/uL (0.0-0.1) 03/28/24 13:24 Nucleated RBC % (auto) 0 % 03/28/24 13:24 Nucleated RBCs # 0.0 /100WBC 03/28/24 13:24 Sodium 140 mmol/L (136-145) 03/28/24 13:24 Potassium 4.3 mmol/L (3.5-5.1) 03/28/24 13:24 Chloride 106 mmol/L (98-107) 03/28/24 13:24 Carbon Dioxide 22 mmol/L (22-29) 03/28/24 13:24 Anion Gap 16.3 (5-19) 03/28/24 13:24 BUN 17 mg/dL (6-20) 03/28/24 13:24 Creatinine 0.6 mg/dL (0.5-0.9) 03/28/24 13:24 GFR Calculation 108.1 mL/min (90-130) 03/28/24 13:24 Glucose 89 mg/dL (65-115) 03/28/24 13:24 Calculated Osmolality 291 mOsm/kg (285-295) 03/28/24 13:24 Calcium 8.1 mg/dL (8.5-10.5) L 03/28/24 13:24 Total Bilirubin 0.3 mg/dL (0.15-1.2) 03/28/24 13:24 AST 22 U/L (0-32) 03/28/24 13:24 ALT 18 U/L (0-33) 03/28/24 13:24 Alkaline Phosphatase 66 U/L (35-105) 03/28/24 13:24 Total Protein 6.3 g/dL (6.6-8.7) L 03/28/24 13:24 Albumin 3.7 g/dL (3.5-5.2) 03/28/24 13:24 Globulin 2.6 g/dL (1.3-4.6) 03/28/24 13:24 HCG, Qual Negative (Negative) 03/28/24 13:04 Urine Color [place] (Yellow) A 03/28/24 13:04 Urine Appearance Cloudy (CLEAR) A 03/28/24 13:04 Urine pH 5.0 (5-7) 03/28/24 13:04 Ur Specific [place] 1.041 (1.005-1.030) H 03/28/24 13:04 Urine Protein Trace (Negative) A 03/28/24 13:04 Urine Glucose (UA) Negative (Normal) 03/28/24 13:04 Urine Ketones Trace (Negative) 03/28/24 13:04 Urine Blood Negative (Negative) 03/28/24 13:04 Urine Nitrate Positive (Negative) A 03/28/24 13:04 Urine Bilirubin 1+ (Negative) H 03/28/24 13:04 Urine Urobilinogen 1.0 mg/dL (Negative) 03/28/24 13:04 Ur Leukocyte Esterase 1+ (Negative) A 03/28/24 13:04 Urine RBC 0-2 /hpf (0-2) 03/28/24 13:04 Urine WBC 0-5 /hpf (0-5) 03/28/24 13:04 Ur Squamous Epith Cells 11-20 /hpf (0-5) H 03/28/24 13:04 Amorphous Sediment Not Reportable 03/28/24 13:04 Urine Bacteria 3+ /hpf (NONE) H 03/28/24 13:04 Hyaline Casts 2.05 /lpf 03/28/24 13:04 Salicylates 1.2 mg/dL (3-10) L 03/28/24 13:24 Urine Opiates Screen Negative ng/mL (Negative) 03/28/24 13:04 Acetaminophen < 5.0 ug/mL (10-30) L 03/28/24 13:24 Ur Barbiturates Screen Negative ng/mL (Negative) 03/28/24 13:04 Ur Phencyclidine Scrn Negative ng/mL (Negative) 03/28/24 13:04 Ur Amphetamines Screen Negative ng/mL (Negative) 03/28/24 13:04 U Benzodiazepines Scrn Positive ng/mL (Negative) H 03/28/24 13:04 Urine Cocaine Screen Negative ng/mL (Negative) 03/28/24 13:04 U Marijuana (THC) Screen Positive ng/mL (Negative) H 03/28/24 13:04 Ethyl Alcohol < 10 mg/dL (0-10) 03/28/24 13:24 All radiology interpretation(s) finalized by discharge Discharge Plan Discharge Patient Disposition: Home Clinical Impression: History of schizophrenia, Anemia Condition: Stable Prescriptions: No Action fluoxetine 40 mg capsule 40 mg PO DAILY metronidazole 500 mg tablet 500 mg PO TID oxybutynin chloride 5 mg tablet 5 mg PO DAILY fluticasone propionate 50 mcg/actuation spray,suspension 2 spray INTRANASAL DAILY naproxen 500 mg tablet 500 mg PO BID Invega Sustenna 156 mg/mL syringe 156 mg IM Q30D Qty: 1 1RF Rx Instructions: Next IM due on 03/31/24 Discharge Orders: Discharge ED (Routine); Ordered 03/28/24 Ordered By: Ashlyn Anders Patient Instructions: Opioid Safety, Pain Management Activity Restrictions/Additional Instructions: Invega shot is due 03/31/2024 You are anemic and must see a primary care provider for evaluation and treatment of this. Print Language: Niuean Coding Level of Care Code ED Class A Truck Driver for Jose Alberto Briones
[2024-03-28 13:37] LABS: Basophils # 0.1 10^3/uL (0.0-0.1); Basophils % 0.9 %; Eosinophils # 0.3 10^3/uL (0.0-0.8); Eosinophils % 3.1 %; Hematocrit 24.3 % (36-47); Lymphocytes # 1.4 10^3/uL (0.8-4.8); Lymphocytes % 16.5 %; Mean Corpuscular HGB Conc 28.4 g/dL (30-55); Mean Corpuscular Hemoglobin 19.9 pg (27-33); Mean Platelet Volume 9.4 fL (7.4-10.4); Monocytes # 0.6 10^3/uL (0.2-0.9); Monocytes % 6.8 %; Neutrophils # 5.92 10^3/uL (1.8-7.7); Neutrophils % 72.2 %; Nucleated Red Blood Cells % 0 %; Platelet Count 347 10^3/cmm (157-399); Red Blood Count 3.47 10^6/uL (3.85-5.65); Red Cell Distribution Width 19.5 % (12.1-15.1); White Blood Count 8.19 10^3/uL (3.29-11.43)
[2024-03-28 13:57] LABS: Alanine Aminotransferase 18 U/L (0-33); Albumin Level 3.7 g/dL (3.5-5.2); Alkaline Phosphatase 66 U/L (35-105); Anion Gap 16.3 (5-19); Aspartate Amino Transferase 22 U/L (0-32); Blood Urea Nitrogen 17 mg/dL (6-20); Calcium 8.1 mg/dL (8.5-10.5); Carbon Dioxide 22 mmol/L (22-29); Chloride 106 mmol/L (98-107); Creatinine Clr Calc Pharmacy 115.6826; Globulin 2.6 g/dL (1.3-4.6); Glomerular Filtration Rate 108.1 mL/min (90-130); Glucose 89 mg/dL (65-115); Osmolality Calculated 291 mOsm/kg (285-295); Potassium 4.3 mmol/L (3.5-5.1); Salicylate 1.2 mg/dL (3-10); Sodium 140 mmol/L (136-145); Total Bilirubin 0.3 mg/dL (0.15-1.2); Total Protein 6.3 g/dL (6.6-8.7)
[2024-03-28 13:58] LABS: Acetaminophen < 5.0 ug/mL (10-30); Alcohol Level < 10 mg/dL (0-10)
[2024-03-28] MEDS: OLANZapine 10 mg ODT PO (14:29)
[2024-03-28] MEDS: nicotine 21 mg Patch 1 PATCH TRANSDERMA (14:30)
[2024-03-28 15:46] VITALS: BP 97/58
[2024-03-28 16:24] VITALS: BP 97/58; PULSE 72; O2SAT 98
== END 2024-03-28 16:28 | disposition home or self-care (01) ==
PROVIDERS: Emergency Provider Emergency Medicine
DX: F20.9 Schizophrenia, unspecified (principal); D64.9 Anemia, unspecified
CPT/HCPCS: 80053; 80306; 80307; 81001; 81025; 85025; 99283

== ENCOUNTER 2024-04-04 09:59 | Inpatient (IN) | payer MEDICARE, SELFPAY ==
[2024-04-04] VITALS (7 sets, daily range): BP systolic 99–131; BP diastolic 64–84; PULSE 70–128; RESP 16–18; TEMP 36.5–37.1; O2SAT 98–100
--- NOTE | 2024-04-04 10:22 | ECG_ITS ---
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 Measurements Intervals [place] Rate: 73 P: 36 IL: 151 QRS: 20 QRSD: 84 T: 49 QT: 395 QTc: 438 Interpretive Statements SINUS RHYTHM LOW QRS VOLTAGE IN PRECORDIAL LEADS [QRS DEFLECTION < 1.0 mV IN CHEST LEADS] POSSIBLE RIGHT VENTRICULAR CONDUCTION DELAY [RSR (QR) IN V1/V2] MODERATE ST DEPRESSION [0.05+ mV ST DEPRESSION] No previous ECG available for comparison Electronically Signed On 04-04-2024 18:49:51 CLINIQUE COUNTER MANAGER by Parisa Valdez M.D. [email or web address]
[2024-04-04] MEDS: LORazepam 1 mg Tablet PO (10:40)
[2024-04-04 10:42] LABS: HCG Qualitative Urine. Negative (Negative)
[2024-04-04 10:45] LABS: Basophils # 0.1 10^3/uL (0.0-0.1); Basophils % 0.7 %; Eosinophils # 0.2 10^3/uL (0.0-0.8); Eosinophils % 1.8 %; Hematocrit 24.8 % (36-47); Lymphocytes # 1.3 10^3/uL (0.8-4.8); Lymphocytes % 16.2 %; Mean Corpuscular HGB Conc 28.6 g/dL (30-55); Mean Corpuscular Hemoglobin 19.8 pg (27-33); Mean Corpuscular Volume 69.3 fl (85-98); Mean Platelet Volume 9.6 fL (7.4-10.4); Monocytes # 0.7 10^3/uL (0.2-0.9); Monocytes % 8.5 %; Neutrophils # 5.88 10^3/uL (1.8-7.7); Neutrophils % 72.3 %; Nucleated Red Blood Cells % 0 %; Platelet Count 350 10^3/cmm (157-399); Red Blood Count 3.58 10^6/uL (3.85-5.65); Red Cell Distribution Width 18.8 % (12.1-15.1); White Blood Count 8.14 10^3/uL (3.29-11.43)
--- NOTE | 2024-04-04 10:50 | W.ED.PSYCHS ---
HPI - Psych General: Chief Complaint: Psychiatric Symptoms Stated Complaint: mhe Time Seen by Provider: 04/04/24 10:04 History of Present Illness: Chief complaint is suicidal ideation. The patient states she does not want to live anymore. She states she is going to walk in front of traffic to kill herself because it is her time to . She states that it is the [place] of life and her time has come to . She states she has no reason to live any longer. She states she has not done anything to hurt herself yet because they will not let her. She states that she lives at a prison. She denies any fall or injury. No headache chest pain shortness of breath cough vomiting or diarrhea. She does smoke tobacco but denies any drug or alcohol use. Denies any possibility of . She states she has not overdosed or done anything to harm herself at this point but plans to. Related Data Home Medications ?Medication ?Instructions ?Recorded ?Confirmed fluoxetine 40 mg capsule 40 mg PO DAILY 03/28/24 04/04/24 fluticasone propionate 50 2 spray intranasal DAILY 03/28/24 04/04/24 mcg/actuation nasal spray,suspension naproxen 500 mg tablet 500 mg PO BID 03/28/24 04/04/24 oxybutynin chloride 5 mg tablet 5 mg PO DAILY 03/28/24 04/04/24 Previous Rx's ?Medication ?Instructions ?Recorded paliperidone palmitate 156 mg/mL 156 mg IM Q30D #1 mL 03/03/24 intramuscular syringe (Invega Sustenna) Allergies Allergy/AdvReac Type Severity Reaction Status Date / Time aspirin Allergy Unknown Verified 02/15/24 16:40 Physical Exam Narrative: EXAM NARRATIVE: Patient is lying on her side. When I walk in the room she starts crying. She starts moaning and saying she does not want to live any longer. She states she wants to . She states her time is calm and it is the [place] of life and she wants to . She is tearful with depressed affect. Const: COMMON NORMALS: patient oriented x3 EXAM LIMITATIONS: behavioral limitations; no altered mental status GENERAL APPEARANCE: well developed and anxious; not combative ORIENTATION/CONSCIOUSNESS: Yes awake, Yes oriented to person, Yes oriented to place and Yes oriented to time HENMT: COMMON NORMALS: normocephalic and atraumatic HEAD & SCALP: normocephalic and atraumatic Eye: COMMON NORMALS: Equal, round and reactive pupils present, EOMs intact bilaterally and conjunctivae normal CONJUNCTIVA: Yes conjunctivae normal PUPIL: Yes Equal, round and reactive pupils present Neck/C-Spine: COMMON NORMALS: full ROM, no meningeal signs and no JVD GENERAL: Yes normal visual inspection Resp: COMMON NORMALS: normal respiratory effort, No use of accessory muscles and clear to auscultation bilaterally AUSCULTATION: clear to auscultation bilaterally Cardio: COMMON NORMALS: no JVD, regular rate and regular rhythm RATE: regular rate RHYTHM: regular rhythm GI: COMMON NORMALS: Soft to palpation and non-tender PALPATION: Yes Soft to palpation : COMMON NORMALS: Yes no CVA tenderness BLADDER/KIDNEY EXAM: Yes no CVA tenderness Back/Pelvis: COMMON NORMALS: no CVA tenderness LUMBAR SPINE/LOWER BACK: Yes normal to inspection and Yes lumbar ROM normal Extremity: COMMON NORMALS: normal to inspection, full ROM and no pedal edema Neuro: COMMON NORMALS: patient oriented x3, CN's II-XII intact bilaterally, moves all extremities and no focal motor deficits SENSORIUM/ORIENTATION: Yes oriented to person, Yes oriented to place and Yes oriented to time MENINGEAL SIGNS: Yes no meningeal signs Psych: ATTITUDE: Yes uncooperative ACTIVITY/MOTOR BEHAVIOR: Yes fidgeting MOOD & AFFECT: Yes depressed mood, Yes anxious, Yes sad and Yes tearful THOUGHT CONTENT: Yes Suicidality present ATTENTION/CONCENTRATION: Yes attention grossly intact MEMORY/COGNITION: Yes memory grossly intact INSIGHT: Poor insight present (Psych) JUDGEMENT: Poor judgement present (Psych) Skin: COMMON NORMALS: no rashes or lesions noted GENERAL SKIN EXAM: no rashes or lesions noted Course Vital Signs: Vital signs: Vital Signs Temperature 98.4 F 04/04/24 10:23 Pulse Rate 85 04/04/24 10:23 Respiratory Rate 16 04/04/24 10:23 Blood Pressure 108/71 04/04/24 10:23 Pulse Oximetry 98 04/04/24 10:23 MDM - Psych Medical Decision Making Patient presents with suicidal thoughts and a plan. Patient initially very tearful. Might recheck on her later she seemed to calm down. Her speech is clear and appropriate. She expresses a plan to hurt herself. Patient placed on medical hold as clued risk of harm to herself. I consulted with Dr. King who accepts the patient for admission. CBC CMP urine drug screen alcohol level salicylate level acetaminophen level urinalysis and test ordered. Patient is anemic. This is improved compared to her prior visit earlier in March however. Patient denies having any black or bloody stools or heavy vaginal bleeding. I discussed doing an digital rectal exam however patient refuses. She states she feels fine from that standpoint no lightheadedness or dizziness and denies routine NSAID use or blood thinner use. She does not feel lightheaded or dizzy. On review she had anemia back in January as well. I do not find emergent medical condition. I recommended she have subsequent testing on her stools for blood and I ordered Protonix 40 mg p.o. here. Advised her to avoid NSAIDs. Urine drug screen positive for marijuana. Salicylate and acetaminophen levels not elevated. test is negative. Bridge orders are placed. Patient admitted to psychiatric floor for further psychiatric care and evaluation. I ordered 1 mg Ativan p.o. for the patient's anxiety. Lab Data 04/04/24 10:34 04/04/24 10:34 Laboratory Results WBC 8.14 10^3/uL (3.29-11.43) 04/04/24 10:34 RBC 3.58 10^6/uL (3.85-5.65) L 04/04/24 10:34 Hgb 7.10 g/dL (11.27-16.99) L 04/04/24 10:34 Hct 24.8 % (36-47) L 04/04/24 10:34 MCV 69.3 fl (85-98) L 04/04/24 10:34 MCH 19.8 pg (27-33) L 04/04/24 10:34 MCHC 28.6 g/dL (30-55) L 04/04/24 10:34 RDW 18.8 % (12.1-15.1) H 04/04/24 10:34 Plt Count 350 10^3/cmm (157-399) 04/04/24 10:34 MPV 9.6 fL (7.4-10.4) 04/04/24 10:34 Neut % (Auto) 72.3 % 04/04/24 10:34 Lymph % (Auto) 16.2 % 04/04/24 10:34 [place] % (Auto) 8.5 % 04/04/24 10:34 Eos % (Auto) 1.8 % 04/04/24 10:34 Baso % (Auto) 0.7 % 04/04/24 10:34 Neut # (Auto) 5.88 10^3/uL (1.8-7.7) 04/04/24 10:34 Lymph # (Auto) 1.3 10^3/uL (0.8-4.8) 04/04/24 10:34 [place] # (Auto) 0.7 10^3/uL (0.2-0.9) 04/04/24 10:34 Eos # (Auto) 0.2 10^3/uL (0.0-0.8) 04/04/24 10:34 Baso # (Auto) 0.1 10^3/uL (0.0-0.1) 04/04/24 10:34 Nucleated RBC % (auto) 0 % 04/04/24 10:34 Nucleated RBCs # 0.0 /100WBC 04/04/24 10:34 Sodium 141 mmol/L (136-145) 04/04/24 10:34 Potassium 4.2 mmol/L (3.5-5.1) 04/04/24 10:34 Chloride 106 mmol/L (98-107) 04/04/24 10:34 Carbon Dioxide 22 mmol/L (22-29) 04/04/24 10:34 Anion Gap 17.2 (5-19) 04/04/24 10:34 BUN 16 mg/dL (6-20) 04/04/24 10:34 Creatinine 0.6 mg/dL (0.5-0.9) 04/04/24 10:34 GFR Calculation 107.6 mL/min (90-130) 04/04/24 10:34 Glucose 68 mg/dL (65-115) 04/04/24 10:34 POC Glucose 130 mg/dL (70-110) H 04/04/24 11:18 Calculated Osmolality 291 mOsm/kg (285-295) 04/04/24 10:34 Calcium 7.9 mg/dL (8.5-10.5) L 04/04/24 10:34 Total Bilirubin 0.2 mg/dL (0.15-1.2) 04/04/24 10:34 AST 17 U/L (0-32) 04/04/24 10:34 ALT 14 U/L (0-33) 04/04/24 10:34 Alkaline Phosphatase 51 U/L (35-105) 04/04/24 10:34 Total Protein 6.0 g/dL (6.6-8.7) L 04/04/24 10:34 Albumin 3.4 g/dL (3.5-5.2) L 04/04/24 10:34 Globulin 2.6 g/dL (1.3-4.6) 04/04/24 10:34 TSH 0.90 uIU/mL (0.27-4.20) 04/04/24 10:34 HCG, Qual Negative (Negative) 04/04/24 10:34 Urine Color Yellow (Yellow) 04/04/24 10:34 Urine Appearance Clear (CLEAR) 04/04/24 10:34 Urine pH 7.0 (5-7) 04/04/24 10:34 Ur Specific [place] 1.022 (1.005-1.030) 04/04/24 10:34 Urine Protein Negative (Negative) 04/04/24 10:34 Urine Glucose (UA) Negative (Normal) 04/04/24 10:34 Urine Ketones Negative (Negative) 04/04/24 10:34 Urine Blood Negative (Negative) 04/04/24 10:34 Urine Nitrate Negative (Negative) 04/04/24 10:34 Urine Bilirubin Negative (Negative) 04/04/24 10:34 Urine Urobilinogen 1.0 mg/dL (Negative) 04/04/24 10:34 Ur Leukocyte Esterase Negative (Negative) 04/04/24 10:34 Urine RBC 0-2 /hpf (0-2) 04/04/24 10:34 Urine WBC 0-5 /hpf (0-5) 04/04/24 10:34 Ur Squamous Epith Cells 6-10 /hpf (0-5) 04/04/24 10:34 Amorphous Sediment Not Reportable 04/04/24 10:34 Urine Bacteria None seen /hpf (NONE) 04/04/24 10:34 Hyaline Casts 0-4 /lpf H 04/04/24 10:34 Salicylates < 0.3 mg/dL (3-10) L 04/04/24 10:34 Urine Opiates Screen Negative ng/mL (Negative) 04/04/24 10:34 Acetaminophen < 5.0 ug/mL (10-30) L 04/04/24 10:34 Ur Barbiturates Screen Negative ng/mL (Negative) 04/04/24 10:34 Ur Phencyclidine Scrn Negative ng/mL (Negative) 04/04/24 10:34 Ur Amphetamines Screen Negative ng/mL (Negative) 04/04/24 10:34 U Benzodiazepines Scrn Negative ng/mL (Negative) 04/04/24 10:34 Urine Cocaine Screen Negative ng/mL (Negative) 04/04/24 10:34 U Marijuana (THC) Screen Positive ng/mL (Negative) H 04/04/24 10:34 Ethyl Alcohol < 10 mg/dL (0-10) 04/04/24 10:34 No radiology studies performed this visit Discharge Plan Discharge Condition: Stable Prescriptions: No Action fluoxetine 40 mg capsule 40 mg PO DAILY oxybutynin chloride 5 mg tablet 5 mg PO DAILY fluticasone propionate 50 mcg/actuation spray,suspension 2 spray INTRANASAL DAILY naproxen 500 mg tablet 500 mg PO BID Invega Sustenna 156 mg/mL syringe 156 mg IM Q30D Qty: 1 1RF Rx Instructions: Next IM due on 03/31/24 Print Language: Slovenian Coding Level of Care Code ED Creel Operator for Jose Alberto Briones
--- NOTE | 2024-04-04 11:04 | PC.PHAR ---
Pt states she did not get to take her Invega injection due 03/31/24 and doesn't remember when she was last able to take medications.
--- NOTE | 2024-04-04 11:10 | PC.NURSE ---
96 hour hold rights read to patient in ER room 9. Patient verbalized understanding. Copy of rights left on sulma.
[2024-04-04 11:11] LABS: Acetaminophen < 5.0 ug/mL (10-30); Alanine Aminotransferase 14 U/L (0-33); Albumin Level 3.4 g/dL (3.5-5.2); Alcohol Level < 10 mg/dL (0-10); Alkaline Phosphatase 51 U/L (35-105); Anion Gap 17.2 (5-19); Aspartate Amino Transferase 17 U/L (0-32); Blood Urea Nitrogen 16 mg/dL (6-20); Calcium 7.9 mg/dL (8.5-10.5); Carbon Dioxide 22 mmol/L (22-29); Chloride 106 mmol/L (98-107); Globulin 2.6 g/dL (1.3-4.6); Glomerular Filtration Rate 107.6 mL/min (90-130); Glucose 68 mg/dL (65-115); Osmolality Calculated 291 mOsm/kg (285-295); Potassium 4.2 mmol/L (3.5-5.1); Salicylate < 0.3 mg/dL (3-10); Sodium 141 mmol/L (136-145); Total Bilirubin 0.2 mg/dL (0.15-1.2)
[2024-04-04 11:21] LABS: Glucose Point of Care 130 mg/dL (70-110)
[2024-04-04 11:22] LABS: Bilirubin Urine Negative (Negative); Blood Urine Negative (Negative); Glucose Urine UA Negative (Normal); Ketones Urine Negative (Negative); Leukocyte Esterase Urine Negative (Negative); Nitrate Urine Negative (Negative); Protein Urine Negative (Negative); Specific Gravity, Urine 1.022 (1.005-1.030); Urine Appearance Clear (CLEAR); Urine Color Yellow (Yellow)
[2024-04-04 11:27] LABS: Bacteria Urine None Seen /hpf; Hyaline Casts Urine 0-4 /lpf; RBC Urine 0-2 /hpf (0-2); WBC Urine 0-5 /hpf (0-5)
[2024-04-04 11:30] LABS: Amphetamines Screen Urine Negative (Negative); Barbiturates Screen Urine Negative (Negative); Benzodiazepines Screen Urine Negative (Negative); Cocaine Screen Urine Negative (Negative); Opiate Screen Urine Negative (Negative); PCP Screen Urine Negative (Negative); THC Screen Urine Positive (Negative)
[2024-04-04 11:51] LABS: Influenza A NEGATIVE (Negative); Influenza B NEGATIVE (Negative); Respiratory Syncytial Virus Ce NEGATIVE (Negative); SARS-CoV-2 PCR NEGATIVE (Negative)
[2024-04-04 14:46] LABS: Iron 8 ug/dL (37-145); Percent Saturation 2.2 % (20-50); Total Iron Binding Capacity 360 mcg/dl; Unsaturated Iron Binding 352 ug/dL (112-347)
[2024-04-04 15:08] LABS: H. Pylori IgG Antibody Negative (Negative)
--- NOTE | 2024-04-04 15:13 | PM.CONSULT ---
Providers/Reason For Consult Consulting Physician/Specialty*: Internal medicine hospitalist Reason for Consult*: Anemia Requesting Physician: Edwin Ayoub MD Attending Physician: Edwin Ayoub MD Primary Care Provider: None listed History of Present Illness History of Present Illness Maribell Morley is a 44 year old female with suicidal ideation seen in the emergency department and referred to psychiatry admission. I am consulted due to severe anemia hematocrit 24.3. Patient tells me that she has been lightheaded with standing and dyspneic on exertion. She has been anemic before and reports gastric bypass surgery. She does not have heavy periods and last menstrual period was last month 5 days 2 products day for bleeding. Patient states she is from [place] where she grew up and has a boyfriend. She moved here because her mother stated that she could live with her mother but mother then kicked her out a week later and she is now living in a [place] [facility] Review of Systems Narrative: GI no nausea vomiting abdominal pain no diarrhea. 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 Cardiovascular positive for tachycardia with exertion Medications/Allergies Home Medications ?Medication ?Instructions ?Recorded ?Confirmed ?Last Taken ?Type paliperidone palmitate 156 mg/mL 156 mg IM Q30D #1 mL 03/03/24 04/04/24 Unknown Rx intramuscular syringe (Invega Sustenna) fluoxetine 40 mg capsule 40 mg PO DAILY 03/28/24 04/04/24 Unknown History fluticasone propionate 50 2 spray intranasal DAILY 03/28/24 04/04/24 Unknown History mcg/actuation nasal spray,suspension naproxen 500 mg tablet 500 mg PO BID 03/28/24 04/04/24 Unknown History oxybutynin chloride 5 mg tablet 5 mg PO DAILY 03/28/24 04/04/24 Unknown History Allergies Allergy/AdvReac Type Severity Reaction Status Date / Time aspirin Allergy Unknown Verified 02/15/24 16:40 Vitals/I&O/Wt Last Vital Signs Temp 98.4 F 04/04/24 10:23 Pulse 85 04/04/24 10:23 Resp 16 04/04/24 10:23 BP 108/71 04/04/24 10:23 Pulse Ox 98 04/04/24 10:23 02/16/25 02/16/25 02/16/25 06:59 14:59 22:59 Intake Total 0 / 0 Balance 0 / 0 Physical Exam Narrative: General well-developed well-nourished white female in no acute cardiopulmonary stress she is alert and pleasant somewhat impulsive CV regular rate and rhythm Lungs clear to auscultation bilaterally Abdomen positive bowel sounds soft nontender Calves 2/4 minimally pitting edema she has pretibial tenderness Data 04/04/24 10:34 04/04/24 10:34 A&P Assessment and plan (1) Complications of gastric bypass surgery: This may be absorption related. Recommend she start iron 325 mg twice a day for 3 months Iron sucrose infusion 300 mg x 1 today. Ordinarily this could be done outpatient but I do not think the patient is reliable for that. Additionally Dr. Ayoub tells me that this cannot be done on the mental health unit (2) Iron deficiency anemia: Iron infusion as above then iron oral replacement. Start proton pump inhibitor and discontinue naproxen (3) History of schizophrenia: Complicates medical treatment see above PDMP PDMP Reviewed: Not Reviewed Coding Level of Care Code 88079 Diagnoses Complications of gastric bypass surgery K91.89; Y83.2 Iron deficiency anemia D50.9 History of schizophrenia Z86.59 Time Spent (min) 45
[2024-04-04] MEDS: iron sucrose 300 MG in sodium chloride 0.9% (100 ml) 100 ML 200 MG IV (15:22)
[2024-04-04] MEDS: nicotine 21 mg Patch 1 PATCH TRANSDERMA (16:47)
[2024-04-04] MEDS: nicotine 4 mg lozenge MUCOUS MEM ×2 (16:47→20:21)
[2024-04-04] MEDS: pantoprazole DR 40 mg Tablet PO (16:47)
[2024-04-04] MEDS: paliperidone palmitate 156 mg Syringe IM (17:23)
--- NOTE | 2024-04-04 17:28 | PC.NURSE ---
Pt received Invega IM 156mg shot in Right deltoid w/no issues.
[2024-04-04 17:29] LABS: Glucose Point of Care 93 mg/dL (70-110)
--- NOTE | 2024-04-04 17:41 | PC.ADMIT ---
[address] Admission Note: The patient,Maribell Morley,44 y/o, was given written information regarding hospital policies, unit procedures and contact persons. Patient's smoking status: . Vital Signs - 8 hr 04/04/24 10:02 04/04/24 10:23 04/04/24 15:28 Temperature 98.4 F 98.4 F Pulse Rate 85 85 77 Respiratory Rate 16 16 Blood Pressure 108/71 108/71 114/64 Pulse Oximetry 98 98 100 Oxygen Delivery Method 04/04/24 15:33 04/04/24 16:11 04/04/24 16:13 Temperature 98.8 F Pulse Rate 70 70 128 H Respiratory Rate 16 Blood Pressure 99/64 111/64 131/81 Pulse Oximetry 100 100 99 Oxygen Delivery Method Room Air ADMITTED FROM [facility] ER AT 1620 VIA WHEECHAIR, SECURITY AND ER STAFF ON A 96 HOUR HOLD THAT ENDS ON 04/12/24@0001. PRESENTS WITH RAPID SPEECH, RAMBLING THAT SHE WANTS TO JUMP OUT IN FRONT TRAFFIC. PT WAS RECENTLY DICHARGED FROM NPU ON 03/03/24. PT WAS DISCHARGED TO A SENIOR CARE AND PT STATES I HATE IT AND WANT TO GO TO [place] WITH [facility] BUT I DON'T KNOW TO GET THERE. PT REPORTS PREVIOUS SUICIDE ATTEMPTS IN THE PAST WITH THE SAME METHOD OF TRAFFIC. CONTINUES TO ENDORSE SI/HI AND AVH AT THIS TIME. 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 ORDERS RECEIVED FROM DR. MATHEW TO START PROZAC 40 MG, NASAL SPRAY, OXYBUTN 5 MG AND 156 MG OF INVEGA IM NOW. PT RECEIVED HER LAST INJECTION ON February WHILE ON THE UNIT. ORDERS RECEIVED FROM DR. MATHEW TO START HIGH DOSE SLIDING SCALE WITH HUMALOG FOR TYPE ONE DIABETES, GLUCOSE CHECKS QID AND HYPOGLYCEMIC PROTOCOL, DOUBLE NICOTINE ORDERS AND DOUBLE PORTION CARB CONSISTENT. PT IS OBSERVED TO HAVE DISORGANIZED THOUGHT PROCESS AND PERSERVATES TO ONE SUBJECT TO THE NEXT. PT STATES SHE MISSED HER [facility] APT AND THATS WHY SHE DID NOT GET HER INVEGA INJECTION. SKIN ASSESSMENT COMPLETED AND UNREMARKABLE. 2+ EDEMA NOTED TO BILATERAL LOWER EXTREMITIES. ORIENTATED TO UNIT. PT WAS ALLOWED TO GET ON PHONE TO GET NUMBERS. ALL QUESTIONS ANSWERED AND SUPPORT VOICED.
[2024-04-04] MEDS: nicotine 2 mg Gum 4 MG BUCCAL (18:19)
[2024-04-04 20:50] LABS: Glucose Point of Care 110 mg/dL (70-110)
[2024-04-05 06:00] VITALS: BP 115/70; PULSE 59; RESP 16; O2SAT 97
[2024-04-05 07:41] LABS: Glucose Point of Care 90 mg/dL (70-110)
[2024-04-05] MEDS: oxybutynin 5 mg Tablet PO (09:07)
[2024-04-05] MEDS: fluticasone nasal spray 16gm Btl 2 SPRAY INTRANASAL (09:07)
[2024-04-05] MEDS: fluoxetine 20 mg Capsule 40 MG PO (09:07)
[2024-04-05] MEDS: pantoprazole DR 40 mg Tablet PO (09:07)
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
[2024-04-05] MEDS: nicotine 2 mg Gum BUCCAL ×7 (10:12→21:57)
[2024-04-05] MEDS: nicotine 21 mg Patch 1 PATCH TRANSDERMA (10:47)
[2024-04-05 11:51] LABS: Glucose Point of Care 109 mg/dL (70-110)
[2024-04-05 14:40] VITALS: BP 102/66; PULSE 76; TEMP 36.9; O2SAT 100
--- NOTE | 2024-04-05 15:10 | PC.NURSE ---
Addendum entered by Ashlie Woodard LPN 04/05/24 15:57: Pt at this time calm / cooperative sitting on the bench near nurses station, eating a sandwich. Original Note: At approximately 1500, the pts mom came to visit pt. They talked in the dayroom for approximately 5 minutes before the staff heard the pt crying in the dayroom and observed her mom walk up to the nurses station and say I am going to leave now . The pt at this time went to the phone to call Williams and spend several minutes talking to Williams on the phone while remaining tearful & sad. Pt was given a Zyprexa for her anxiety/nerves.
[2024-04-05] MEDS: OLANZapine 5 mg ODT PO (15:17)
[2024-04-05 17:24] LABS: Glucose Point of Care 177 mg/dL (70-110)
[2024-04-05] MEDS: insulin lispro 100 unit/1 mL SUBCUT (17:26)
[2024-04-05 19:26] LABS: Glucose Point of Care 97 mg/dL (70-110)
[2024-04-05 20:35] VITALS: BP 104/66; PULSE 77; RESP 18; TEMP 36.7; O2SAT 99
--- NOTE | 2024-04-05 21:59 | PC.NURSE ---
Nicotine patch removed from right shoulder.
[2024-04-06] MEDS: nicotine 2 mg Gum BUCCAL (00:21)
[2024-04-06] MEDS: acetaminophen 325 mg Tablet 650 MG PO ×2 (00:58→14:38)
[2024-04-06] MEDS: OLANZapine 5 mg ODT PO (00:58)
[2024-04-06 05:58] VITALS: BP 129/86; PULSE 72; RESP 18; TEMP 37; O2SAT 97
[2024-04-06 08:00] LABS: Glucose Point of Care 90 mg/dL (70-110)
[2024-04-06] MEDS: fluoxetine 20 mg Capsule 40 MG PO (08:03)
[2024-04-06] MEDS: oxybutynin 5 mg Tablet PO (08:04)
[2024-04-06] MEDS: pantoprazole DR 40 mg Tablet PO (08:04)
[2024-04-06 12:16] LABS: Glucose Point of Care 91 mg/dL (70-110)
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
[2024-04-06 14:00] VITALS: BP 97/56; PULSE 57; RESP 16; TEMP 37.1; O2SAT 98
[2024-04-06] MEDS: nicotine 4 mg lozenge MUCOUS MEM ×2 (14:38→16:13)
[2024-04-06 17:09] LABS: Glucose Point of Care 105 mg/dL (70-110)
[2024-04-06 19:38] LABS: Glucose Point of Care 110 mg/dL (70-110)
[2024-04-06 19:53] VITALS: BP 93/54; PULSE 68; RESP 16; TEMP 36.7; O2SAT 96
[2024-04-07 06:00] VITALS: BP 126/78; PULSE 69; RESP 16; O2SAT 97
[2024-04-07 07:08] LABS: Glucose Point of Care 93 mg/dL (70-110)
[2024-04-07] MEDS: pantoprazole DR 40 mg Tablet PO (08:39)
[2024-04-07] MEDS: fluoxetine 20 mg Capsule 40 MG PO (08:39)
[2024-04-07] MEDS: oxybutynin 5 mg Tablet PO (08:39)
[2024-04-07] MEDS: nicotine 21 mg Patch 1 PATCH TRANSDERMA (08:40)
[2024-04-07] MEDS: nicotine 2 mg Gum BUCCAL (08:46)
[2024-04-07] MEDS: ondansetron 4 MG Tablet PO (08:46)
--- NOTE | 2024-04-07 08:50 | PC.NURSE ---
Zofran given to patient for upset stomach. She stated she felt too sick to do the nasal spray
[2024-04-07 11:14] LABS: Glucose Point of Care 141 mg/dL (70-110)
[2024-04-07] MEDS: insulin lispro 100 unit/1 mL SUBCUT (11:37)
[2024-04-07] MEDS: nicotine 4 mg lozenge MUCOUS MEM ×4 (12:09→18:58)
[2024-04-07] MEDS: hyDROXYzine 25 mg Capsule 50 MG PO (12:39)
[2024-04-07] MEDS: acetaminophen 325 mg Tablet 650 MG PO (13:18)
[2024-04-07] MEDS: OLANZapine 5 mg ODT PO (13:31)
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
[2024-04-07 14:00] VITALS: BP 100/69; PULSE 70; RESP 16; TEMP 36.6; O2SAT 100
--- NOTE | 2024-04-07 16:56 | PC.NURSE ---
pt update pt continuously asking the same questions throughout the day. does not recall that they have already been answered. also asking for a nicotine lozenge every 2 hours.
[2024-04-07 16:58] LABS: Glucose Point of Care 95 mg/dL (70-110)
--- NOTE | 2024-04-07 19:06 | PC.NURSE ---
pt diet pt states she doesn't want pork. did not eat her supper d/t pork.
[2024-04-07 19:38] LABS: Glucose Point of Care 125 mg/dL (70-110)
[2024-04-07 20:08] VITALS: BP 97/55; PULSE 64; RESP 18; O2SAT 100
[2024-04-08] MEDS: nicotine 4 mg lozenge MUCOUS MEM ×6 (00:19→20:20)
[2024-04-08 06:00] VITALS: BP 110/76; PULSE 60; RESP 18; TEMP 36.3; O2SAT 100
[2024-04-08 07:37] LABS: Glucose Point of Care 93 mg/dL (70-110)
[2024-04-08] MEDS: oxybutynin 5 mg Tablet PO (08:48)
[2024-04-08] MEDS: fluoxetine 20 mg Capsule 40 MG PO (08:48)
[2024-04-08] MEDS: pantoprazole DR 40 mg Tablet PO (08:49)
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
[2024-04-08 12:02] LABS: Glucose Point of Care 46 mg/dL (70-110)
[2024-04-08 12:26] LABS: Alanine Aminotransferase 12 U/L (0-33); Albumin Level 3.6 g/dL (3.5-5.2); Alkaline Phosphatase 58 U/L (35-105); Aspartate Amino Transferase 16 U/L (0-32); Calcium 8.5 mg/dL (8.5-10.5); Ferritin 48 ng/mL (15-150); Globulin 2.3 g/dL (1.3-4.6); Iron 17 ug/dL (37-145); Percent Saturation 4.6 % (20-50); Total Bilirubin 0.2 mg/dL (0.15-1.2); Total Iron Binding Capacity 365 mcg/dl; Total Protein 5.9 g/dL (6.6-8.7); Unsaturated Iron Binding 348 ug/dL (112-347)
[2024-04-08 12:38] LABS: Glucose Point of Care 94 mg/dL (70-110)
[2024-04-08 12:40] LABS: 25 Hydroxy Vitamin D 14 ng/mL (30-100); Vitamin B12 239 pg/mL (232-1245)
[2024-04-08 12:42] LABS: Folate Level 10.7 ng/mL (4.8-37.3)
[2024-04-08 14:00] VITALS: BP 98/61; PULSE 82; RESP 16; TEMP 36.8; O2SAT 100
[2024-04-08 17:02] LABS: Glucose Point of Care 98 mg/dL (70-110)
[2024-04-08] MEDS: hyDROXYzine 25 mg Capsule 50 MG PO (19:20)
[2024-04-08] MEDS: trazodone 50 mg Tablet PO (19:20)
[2024-04-08 20:01] LABS: Glucose Point of Care 110 mg/dL (70-110)
[2024-04-08 20:13] VITALS: BP 93/53; PULSE 60; RESP 16; TEMP 36.6; O2SAT 98
[2024-04-08] MEDS: OLANZapine 5 mg ODT PO (20:20)
[2024-04-09 06:00] VITALS: BP 92/56; PULSE 54; RESP 15; TEMP 36.5; O2SAT 98
[2024-04-09 07:31] LABS: Glucose Point of Care 123 mg/dL (70-110)
[2024-04-09] MEDS: pantoprazole DR 40 mg Tablet PO (09:05)
[2024-04-09] MEDS: fluoxetine 20 mg Capsule 40 MG PO (09:05)
[2024-04-09] MEDS: fluticasone nasal spray 16gm Btl 2 SPRAY INTRANASAL (09:05)
[2024-04-09] MEDS: oxybutynin 5 mg Tablet PO (09:05)
[2024-04-09 11:36] LABS: Glucose Point of Care 115 mg/dL (70-110)
[2024-04-09 14:00] VITALS: BP 80/48; PULSE 64; RESP 16; TEMP 37.1; O2SAT 97
[2024-04-09 16:14] LABS: Glucose Point of Care 78 mg/dL (70-110)
[2024-04-09] MEDS: nicotine 4 mg lozenge MUCOUS MEM ×2 (17:09→19:54)
--- NOTE | 2024-04-09 19:26 | W.PM.NPUPNS ---
Subjective NPU Subjective: Patient presented today reporting that she felt she was doing okay. She reports she has significant anxiety and worries about what is going to happen next as her mother seems to have extricated herself from the circumstance after bringing her to [place] from [place]. She reports that she is torn between returning to [place] and staying here but she is frustrated because she does not have any supports and we discussed concerns about her functionality overall to be able to manage herself independently. She reports that she feels her medications have been mostly effective but she continues to have concern about which direction to go. She denied any side effects to medication. We discussed working with the social work team on Friday for some definitive decisions about discharge planning locally versus possibly returning back home. Mental Status Exam MSE Comments: This is an overweight versus obese white female in hospital scrubs with limited grooming but adequate eye contact. No abnormal movements except for mild psychomotor retardation. Cooperative with exam in mild to moderate distress. Speech was mostly decreased rate and volume. Mood described as anxious about what she is going to do, affect is congruent. Thought process, organized. Thought content: patient endorsed recent suicidal but denied homicidal ideation, no clear paranoia reported, but some paranoia and guardedness noted, she denies current auditory or visual hallucinations. Attention and concentration are intact and memory appeared mostly reliable , but none were formally tested. She is alert and oriented x 3. Insight and judgment are impaired. Impulse control is impaired. Vitals/I&O/Wt Last Vital Signs Temp 98.8 F 04/09/24 14:00 Pulse 64 04/09/24 14:00 Resp 16 04/09/24 14:00 BP 80/48 04/09/24 14:00 Pulse Ox 97 04/09/24 14:00 O2 Del Method Room Air 04/09/24 14:00 Data NPU 04/04/24 10:34 04/04/24 10:34 A&P Assessment and plan (1) Depression, unspecified: (2) Acute psychosis: (3) Suicidal ideation: (4) History of schizophrenia: (5) Methamphetamine use disorder, severe, dependence: Plan This is a 44-year-old white woman with a history of trauma, mental health and addiction with genetic loading for mental health and addiction issues who presents again with suicidal ideation. 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 1. Patient given monthly INVEGA IM 156mg on 04/04/24. Continue Prozac 40mg daily. Her next monthly injection due on 04/26/24. 2. Will obtain collateral information. 3. Continue individual, group and milieu therapy. 4. Continue every 15 minute checks for safety. 5. Encourage sober living treatment after discharge at the highest level care to which she is willing to commit. 6. Attempt to find appropriate discharge location at this time. 7. Labs ordered with hx of gastric bypass surgery/anemia. Iron studies, Fe, Ca, LFT, D3, folate, B12 8. 21-day hold paperwork filed. PDMP PDMP Reviewed: Not Reviewed Involuntary Hold Information 96 Hour Hold: 96 Hour Involuntary Admission: Yes 96 Hour Hold Ending Date: 04/12/24 96 Hour Hold Ending Time: 00:01 Other Hold: Hold End Date: 04/12/24 Attestations NPU Medical Necessity Statement*: Inpatient hospitalization is medically necessary and the clinically appropriate intervention at this time. We will monitor medications and make changes as indicated. Patient's likely length of stay is 4-6 days. Coding Level of Care Code Acute Code for Chg Fwd Diagnoses Depression, unspecified F32.A Acute psychosis F23 Suicidal ideation R45.851 History of schizophrenia Z86.59 Methamphetamine use disorder, severe, dependence F15.20
[2024-04-09] MEDS: trazodone 50 mg Tablet PO (19:54)
[2024-04-09] MEDS: OLANZapine 5 mg ODT PO (19:55)
[2024-04-09 20:02] LABS: Glucose Point of Care 153 mg/dL (70-110)
[2024-04-09 20:03] VITALS: BP 91/53; PULSE 68; RESP 16; TEMP 36.6; O2SAT 95
[2024-04-09 21:12] VITALS: BP 84/55; PULSE 85; RESP 20; O2SAT 99
[2024-04-09] MEDS: nicotine 21 mg Patch 1 PATCH TRANSDERMA (21:55)
[2024-04-10 06:00] VITALS: BP 92/60; PULSE 58; RESP 16; TEMP 36.4; O2SAT 95
[2024-04-10 07:26] LABS: Glucose Point of Care 87 mg/dL (70-110)
[2024-04-10] MEDS: oxybutynin 5 mg Tablet PO (08:51)
[2024-04-10] MEDS: fluticasone nasal spray 16gm Btl 2 SPRAY INTRANASAL (08:52)
[2024-04-10] MEDS: fluoxetine 20 mg Capsule 40 MG PO (08:52)
[2024-04-10] MEDS: pantoprazole DR 40 mg Tablet PO (08:52)
[2024-04-10] MEDS: nicotine 2 mg Gum BUCCAL (08:58)
[2024-04-10] MEDS: hyDROXYzine 25 mg Capsule 50 MG PO (08:58)
--- NOTE | 2024-04-10 09:40 | P.NPUPN_ITS ---
Subjective NPU 2 Subjective: Patient presented today reporting that things are going fine. She was very sad she reports because her mother will not reengage her. She reports feeling confused about what she should do the next because she misses her pet and her significant other in [place]. But she acknowledges that being homeless again something she does not know that she can handle in a way that will be compatible with her good mental health. She denies any side effects of medication. Mental Status Exam 2 MSE Comments: This is an overweight versus obese white female in hospital scrubs with limited grooming but adequate eye contact. No abnormal movements except for mild psychomotor retardation. Cooperative with exam in mild to moderate distress. Speech was mostly decreased rate and volume. Mood described as anxious about what she is going to do, affect is congruent. Thought process, organized. Thought content: patient endorsed recent suicidal but denied homicidal ideation, no clear paranoia reported, but some paranoia and guardedness noted, she denies current auditory or visual hallucinations. Attention and concentration are intact and memory appeared mostly reliable , but none were formally tested. She is alert and oriented x 3. Insight and judgment are impaired. Impulse control is impaired. Vitals/I&O/Wt Last Vital Signs Temp 97.6 F 04/10/24 06:00 Pulse 58 L 04/10/24 06:00 Resp 16 04/10/24 06:00 BP 92/60 04/10/24 06:00 Pulse Ox 95 04/10/24 06:00 O2 Del Method Room Air 04/10/24 06:00 Data NPU 04/04/24 10:34 04/04/24 10:34 A&P Assessment and plan (1) Depression, unspecified: (2) Acute psychosis: (3) Suicidal ideation: (4) History of schizophrenia: (5) Methamphetamine use disorder, severe, dependence: Plan This is a 44-year-old white woman with a history of trauma, mental health and addiction with genetic loading for mental health and addiction issues who presents again with suicidal ideation. 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 1. Patient given monthly INVEGA IM 156mg on 04/04/24. Continue Prozac 40mg daily. Her next monthly injection due on 04/26/24. 2. Will obtain collateral information. 3. Continue individual, group and milieu therapy. 4. Continue every 15 minute checks for safety. 5. Encourage sober living treatment after discharge at the highest level care to which she is willing to commit. 6. Attempt to find appropriate discharge location at this time. 7. Labs ordered with hx of gastric bypass surgery/anemia. Iron studies, Fe, Ca, LFT, D3, folate, B12 8. 21-day hold paperwork filed. PDMP PDMP Reviewed: Not Reviewed Involuntary Hold Information 2 96 Hour Hold: 96 Hour Involuntary Admission: Yes 96 Hour Hold Ending Date: 04/12/24 96 Hour Hold Ending Time: 00:01 Other Hold: Hold End Date: 04/12/24 Attestations NPU 2 Medical Necessity Statement*: Inpatient hospitalization is medically necessary and the clinically appropriate intervention at this time. We will monitor medications and make changes as indicated. Patient's likely length of stay is 4-6 days. Coding Level of Care Code Acute Code for Chg Fwd Diagnoses Depression, unspecified F32.A Acute psychosis F23 Suicidal ideation R45.851 History of schizophrenia Z86.59 Methamphetamine use disorder, severe, dependence F15.20
[2024-04-10 14:00] VITALS: BP 99/61; PULSE 73; RESP 16; TEMP 36.8; O2SAT 96
[2024-04-10 17:23] LABS: Glucose Point of Care 308 mg/dL (70-110)
[2024-04-10 17:23] LABS: Glucose Point of Care 154 mg/dL (70-110)
[2024-04-10 17:23] LABS: Glucose Point of Care 333 mg/dL (70-110)
[2024-04-10] MEDS: insulin lispro 100 unit/1 mL SUBCUT (18:13)
[2024-04-10 19:41] LABS: Glucose Point of Care 78 mg/dL (70-110)
[2024-04-10 21:01] VITALS: BP 118/75; PULSE 113; RESP 18; TEMP 36.3; O2SAT 90
[2024-04-11 05:57] VITALS: BMI 29.9
[2024-04-11 06:00] VITALS: BP 93/60; PULSE 60; RESP 18; TEMP 36.7; O2SAT 98
[2024-04-11 07:31] LABS: Glucose Point of Care 94 mg/dL (70-110)
[2024-04-11] MEDS: pantoprazole DR 40 mg Tablet PO (08:49)
[2024-04-11] MEDS: nicotine 2 mg Gum BUCCAL ×3 (08:49→15:16)
[2024-04-11] MEDS: fluoxetine 20 mg Capsule 40 MG PO (08:49)
[2024-04-11] MEDS: oxybutynin 5 mg Tablet PO (08:49)
[2024-04-11 11:18] LABS: Glucose Point of Care 110 mg/dL (70-110)
--- NOTE | 2024-04-11 11:26 | P.NPUPN_ITS ---
Subjective NPU 2 Subjective: Patient presented today reporting that things are going okay. She has now had a contact with her reported significant other which is unclear whether that is true and she is insisting that she now has a place to go and will be able to live with him and everything will be fine when she is back in [place]. We discussed the social work team coming tomorrow and her need to work with them to make sure everything checks out and we can schedule appointments excetra she endorsed that she is doing fine on the medication and denied any side effects to them. Mental Status Exam 2 MSE Comments: This is an overweight versus obese white female in hospital scrubs with limited grooming but adequate eye contact. No abnormal movements except for mild psychomotor retardation. Cooperative with exam in mild to moderate distress. Speech was mostly decreased rate and volume. Mood described as anxious about what she is going to do, affect is congruent. Thought process, organized. Thought content: patient endorsed recent suicidal but denied homicidal ideation, no clear paranoia reported, but some paranoia and guardedness noted, she denies current auditory or visual hallucinations. Attention and concentration are intact and memory appeared mostly reliable , but none were formally tested. She is alert and oriented x 3. Insight and judgment are impaired. Impulse control is impaired. Vitals/I&O/Wt Last Vital Signs Temp 98.1 F 04/11/24 06:00 Pulse 60 04/11/24 06:00 Resp 18 04/11/24 06:00 BP 93/60 04/11/24 06:00 Pulse Ox 98 04/11/24 06:00 O2 Del Method Room Air 04/11/24 06:00 04/10/24 04/11/24 04/11/24 22:59 06:59 14:59 Intake Total 240 / 720 Balance 240 / 720 Weight last 48 hrs Weight 84.141 kg Data NPU 04/04/24 10:34 04/04/24 10:34 A&P Assessment and plan (1) Depression, unspecified: (2) Acute psychosis: (3) Suicidal ideation: (4) History of schizophrenia: (5) Methamphetamine use disorder, severe, dependence: Plan This is a 44-year-old white woman with a history of trauma, mental health and addiction with genetic loading for mental health and addiction issues who presents again with suicidal ideation. 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 1. Patient given monthly INVEGA IM 156mg on 04/04/24. Continue Prozac 40mg daily. Her next monthly injection due on 04/26/24. 2. Will obtain collateral information. 3. Continue individual, group and milieu therapy. 4. Continue every 15 minute checks for safety. 5. Encourage sober living treatment after discharge at the highest level care to which she is willing to commit. 6. Attempt to find appropriate discharge location at this time. 7. Labs ordered with hx of gastric bypass surgery/anemia. Iron studies, Fe, Ca, LFT, D3, folate, B12 8. 21-day hold paperwork filed. PDMP PDMP Reviewed: Not Reviewed Involuntary Hold Information 2 96 Hour Hold: 96 Hour Involuntary Admission: Yes 96 Hour Hold Ending Date: 04/12/24 96 Hour Hold Ending Time: 00:01 Other Hold: Hold End Date: 04/12/24 Attestations NPU 2 Medical Necessity Statement*: Inpatient hospitalization is medically necessary and the clinically appropriate intervention at this time. We will monitor medications and make changes as indicated. Patient's likely length of stay is 3-5 days. Coding Level of Care Code Acute Code for Chg Fwd Diagnoses Depression, unspecified F32.A Acute psychosis F23 Suicidal ideation R45.851 History of schizophrenia Z86.59 Methamphetamine use disorder, severe, dependence F15.20
[2024-04-11] MEDS: acetaminophen 325 mg Tablet 650 MG PO (13:29)
[2024-04-11 14:00] VITALS: BP 82/51; PULSE 77; RESP 17; O2SAT 98
[2024-04-11] MEDS: hyDROXYzine 25 mg Capsule 50 MG PO (15:10)
[2024-04-11] MEDS: OLANZapine 5 mg ODT PO (16:47)
[2024-04-11 17:36] LABS: Glucose Point of Care 143 mg/dL (70-110)
[2024-04-11] MEDS: insulin lispro 100 unit/1 mL SUBCUT (17:42)
[2024-04-11] MEDS: trazodone 50 mg Tablet PO (19:55)
[2024-04-11 20:42] LABS: Glucose Point of Care 111 mg/dL (70-110)
[2024-04-11 21:07] VITALS: BP 90/57; PULSE 73; RESP 16; TEMP 37; O2SAT 98
[2024-04-12 06:00] VITALS: BP 90/65; PULSE 49; RESP 16; O2SAT 97
[2024-04-12 07:28] LABS: Glucose Point of Care 96 mg/dL (70-110)
[2024-04-12] MEDS: fluoxetine 20 mg Capsule 40 MG PO (09:30)
[2024-04-12] MEDS: pantoprazole DR 40 mg Tablet PO (09:30)
[2024-04-12] MEDS: oxybutynin 5 mg Tablet PO (09:30)
[2024-04-12] MEDS: nicotine 21 mg Patch 1 PATCH TRANSDERMA (09:30)
[2024-04-12] MEDS: nicotine 4 mg lozenge MUCOUS MEM ×4 (09:35→20:08)
--- NOTE | 2024-04-12 10:00 | PC.NURSE ---
Memory appears intact. Pt able to recall specific details about certain instances from the past but repeatedly asks what day of the week it is. Pt states her amnesia kicks in and she forgets.
[2024-04-12 11:29] LABS: Glucose Point of Care 157 mg/dL (70-110)
[2024-04-12] MEDS: insulin lispro 100 unit/1 mL SUBCUT (12:25)
--- NOTE | 2024-04-12 12:44 | P.NPUPN_ITS ---
Subjective NPU 2 Subjective: Patient presented today reporting that things are going okay but she expressed confusion about the discharge plan. Had a lengthy discussion about the fact that should be no confusion because the plan has been very clear. Social work team is working on contacting [facility] to find out what the living arrangement will be in [place] to ensure that she does not return to a situation that has led to her decompensation every time. She was reluctant to except that but ultimately identified that she needs to be in a stable situation. We discussed that we are working to find out what the current situation would be so that we can make intelligent decisions about what is next. She denied any side effects to the medication. Mental Status Exam 2 MSE Comments: This is an overweight versus obese white female in hospital scrubs with limited grooming but adequate eye contact. No abnormal movements except for mild psychomotor retardation. Cooperative with exam in mild to moderate distress. Speech was mostly decreased rate and volume. Mood described as anxious about what she is going to do, affect is congruent. Thought process, organized. Thought content: patient endorsed recent suicidal but denied homicidal ideation, no clear paranoia reported, but some paranoia and guardedness noted, she denies current auditory or visual hallucinations. Attention and concentration are intact and memory appeared mostly reliable , but none were formally tested. She is alert and oriented x 3. Insight and judgment are impaired. Impulse control is impaired. Vitals/I&O/Wt Last Vital Signs Temp 98.6 F 04/11/24 21:07 Pulse 49 L 04/12/24 06:00 Resp 16 04/12/24 06:00 BP 90/65 04/12/24 06:00 Pulse Ox 97 04/12/24 06:00 O2 Del Method Room Air 04/12/24 06:00 Weight last 48 hrs Weight 84.141 kg Data NPU 04/04/24 10:34 04/04/24 10:34 A&P Assessment and plan (1) Depression, unspecified: (2) Acute psychosis: (3) Suicidal ideation: (4) History of schizophrenia: (5) Methamphetamine use disorder, severe, dependence: Plan This is a 44-year-old white woman with a history of trauma, mental health and addiction with genetic loading for mental health and addiction issues who presents again with suicidal ideation. 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 1. Patient given monthly INVEGA IM 156mg on 04/04/24. Continue Prozac 40mg daily. Her next monthly injection due on 04/26/24. 2. Will obtain collateral information. 3. Continue individual, group and milieu therapy. 4. Continue every 15 minute checks for safety. 5. Encourage sober living treatment after discharge at the highest level care to which she is willing to commit. 6. Attempt to find appropriate discharge location at this time. 7. Labs ordered with hx of gastric bypass surgery/anemia. Iron studies, Fe, Ca, LFT, D3, folate, B12 8. 21-day hold paperwork filed. PDMP PDMP Reviewed: Not Reviewed Involuntary Hold Information 2 96 Hour Hold: 96 Hour Involuntary Admission: Yes 96 Hour Hold Ending Date: 04/12/24 96 Hour Hold Ending Time: 00:01 Other Hold: Hold End Date: 04/12/24 Attestations NPU 2 Medical Necessity Statement*: Inpatient hospitalization is medically necessary and the clinically appropriate intervention at this time. We will monitor medications and make changes as indicated. Patient's likely length of stay is 3-5 days. Coding Level of Care Code Acute Code for Chg Fwd Diagnoses Depression, unspecified F32.A Acute psychosis F23 Suicidal ideation R45.851 History of schizophrenia Z86.59 Methamphetamine use disorder, severe, dependence F15.20
[2024-04-12 14:00] VITALS: BP 95/63; PULSE 98; RESP 16; TEMP 37; O2SAT 98
[2024-04-12 16:53] LABS: Glucose Point of Care 91 mg/dL (70-110)
[2024-04-12] MEDS: trazodone 50 mg Tablet PO ×2 (20:06→21:04)
[2024-04-12 21:41] VITALS: BP 101/62; PULSE 68; RESP 18; O2SAT 96
[2024-04-13 06:00] VITALS: BP 87/53; PULSE 57; RESP 16; O2SAT 98
[2024-04-13 07:38] LABS: Glucose Point of Care 105 mg/dL (70-110)
[2024-04-13] MEDS: pantoprazole DR 40 mg Tablet PO (08:05)
[2024-04-13] MEDS: oxybutynin 5 mg Tablet PO (08:06)
[2024-04-13] MEDS: fluoxetine 20 mg Capsule 40 MG PO (08:06)
[2024-04-13] MEDS: fluticasone nasal spray 16gm Btl 2 SPRAY INTRANASAL (08:07)
[2024-04-13] MEDS: nicotine 4 mg lozenge MUCOUS MEM ×4 (11:42→21:16)
[2024-04-13] MEDS: insulin lispro 100 unit/1 mL SUBCUT (12:43)
[2024-04-13 14:00] VITALS: BP 100/72; PULSE 90; RESP 17; O2SAT 100
--- NOTE | 2024-04-13 16:28 | P.NPUPN_ITS ---
Subjective NPU 2 Subjective: Patient presented today reporting that things are okay but she continues to demonstrate her limitations by being quite upset about the situation. We discussed at length the fact that we are working to identify a safe and appropriate situation for her in [place] but we can only manage what we can manage. She went to her 21-day hold hearing and was placed on a 21-day hold today. She denied any side effects to the medication. Mental Status Exam 2 MSE Comments: This is an overweight versus obese white female in hospital scrubs with limited grooming but adequate eye contact. No abnormal movements except for mild psychomotor retardation. Cooperative with exam in mild to moderate distress. Speech was mostly decreased rate and volume. Mood described as anxious about what she is going to do, affect is congruent and occasionally tearful. Thought process, organized. Thought content: patient endorsed recent suicidal but denied homicidal ideation, no clear paranoia reported, but some paranoia and guardedness noted, she denies current auditory or visual hallucinations. Attention and concentration are intact and memory appeared mostly reliable , but none were formally tested. She is alert and oriented x 3. Insight and judgment are impaired. Impulse control is impaired. Vitals/I&O/Wt Last Vital Signs Temp 98.6 F 04/12/24 14:00 Pulse 90 04/13/24 14:00 Resp 17 04/13/24 14:00 BP 100/72 04/13/24 14:00 Pulse Ox 100 04/13/24 14:00 O2 Del Method Room Air 04/12/24 14:00 Data NPU 04/04/24 10:34 04/04/24 10:34 A&P Assessment and plan (1) Depression, unspecified: (2) Acute psychosis: (3) Suicidal ideation: (4) History of schizophrenia: (5) Methamphetamine use disorder, severe, dependence: Plan This is a 44-year-old white woman with a history of trauma, mental health and addiction with genetic loading for mental health and addiction issues who presents again with suicidal ideation. 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 1. Patient given monthly INVEGA IM 156mg on 04/04/24. Continue Prozac 40mg daily. Her next monthly injection due on 04/26/24. 2. Will obtain collateral information. 3. Continue individual, group and milieu therapy. 4. Continue every 15 minute checks for safety. 5. Encourage sober living treatment after discharge at the highest level care to which she is willing to commit. 6. Attempt to find appropriate discharge location at this time. 7. Labs ordered with hx of gastric bypass surgery/anemia. Iron studies, Fe, Ca, LFT, D3, folate, B12 8. 21-day hold paperwork filed. 21-day hold hearing held and patient placed on 21-day hold 04/13/2024. 9. Working on identifying information related to possible living arrangements in [place]. PDMP PDMP Reviewed: Not Reviewed Involuntary Hold Information 2 96 Hour Hold: 96 Hour Involuntary Admission: Yes 96 Hour Hold Ending Date: 04/12/24 96 Hour Hold Ending Time: 00:01 Other Hold: Hold End Date: 04/12/24 Attestations NPU 2 Medical Necessity Statement*: Inpatient hospitalization is medically necessary and the clinically appropriate intervention at this time. We will monitor medications and make changes as indicated. Patient's likely length of stay is 3-5 days. Coding Level of Care Code Acute Code for Chg Fwd Diagnoses Depression, unspecified F32.A Acute psychosis F23 Suicidal ideation R45.851 History of schizophrenia Z86.59 Methamphetamine use disorder, severe, dependence F15.20
[2024-04-13 17:11] LABS: Glucose Point of Care 101 mg/dL (70-110)
[2024-04-13 17:11] LABS: Glucose Point of Care 257 mg/dL (70-110)
[2024-04-13] MEDS: trazodone 50 mg Tablet PO ×2 (19:23→23:26)
[2024-04-13 20:04] LABS: Glucose Point of Care 127 mg/dL (70-110)
[2024-04-13 20:14] VITALS: BP 100/64; PULSE 117; RESP 18; TEMP 36.8; O2SAT 97
[2024-04-13] MEDS: acetaminophen 325 mg Tablet 650 MG PO (21:15)
[2024-04-13] MEDS: hyDROXYzine 25 mg Capsule 50 MG PO (23:26)
[2024-04-14 06:00] VITALS: BP 93/51; PULSE 72; RESP 16; TEMP 36.6; O2SAT 98
[2024-04-14 07:41] LABS: Glucose Point of Care 102 mg/dL (70-110)
[2024-04-14] MEDS: oxybutynin 5 mg Tablet PO (08:35)
[2024-04-14] MEDS: fluoxetine 20 mg Capsule 40 MG PO (08:35)
[2024-04-14] MEDS: nicotine 2 mg Gum BUCCAL (08:35)
[2024-04-14] MEDS: pantoprazole DR 40 mg Tablet PO (08:35)
[2024-04-14 12:09] LABS: Glucose Point of Care 210 mg/dL (70-110)
[2024-04-14] MEDS: insulin lispro 100 unit/1 mL SUBCUT ×2 (12:22→18:31)
[2024-04-14] MEDS: nicotine 4 mg lozenge MUCOUS MEM ×4 (12:40→21:44)
[2024-04-14 14:00] VITALS: BP 102/62; PULSE 75; RESP 17; TEMP 36.6; O2SAT 99
--- NOTE | 2024-04-14 14:01 | P.NPUPN_ITS ---
Subjective NPU 2 Subjective: Patient presented today reporting that she is sad because she does not know when she is going to leave. She continues to struggle with the concept that most things in life are not based on some absolute timeline. And that we are working with the social work team to find out what the possibilities are. We are looking at possible flights for her and trying to identify whether her reported fianc? is someone that she will be able to depend on from the standpoint of living arrangements and her plan. She denied any side effects to her medication. Mental Status Exam 2 MSE Comments: This is an overweight versus obese white female in hospital scrubs with limited grooming but adequate eye contact. No abnormal movements except for mild psychomotor retardation. Cooperative with exam in mild to moderate distress. Speech was mostly decreased rate and volume. Mood described as anxious about what she is going to do, affect is congruent and occasionally tearful. Thought process, organized. Thought content: patient endorsed recent suicidal but denied homicidal ideation, no clear paranoia reported, but some paranoia and guardedness noted, she denies current auditory or visual hallucinations. Attention and concentration are intact and memory appeared mostly reliable , but none were formally tested. She is alert and oriented x 3. Insight and judgment are impaired. Impulse control is impaired. Vitals/I&O/Wt Last Vital Signs Temp 97.8 F 04/14/24 06:00 Pulse 72 04/14/24 06:00 Resp 16 04/14/24 06:00 BP 93/51 04/14/24 06:00 Pulse Ox 98 04/14/24 06:00 O2 Del Method Room Air 04/14/24 06:00 Data NPU 04/04/24 10:34 04/04/24 10:34 A&P Assessment and plan (1) Depression, unspecified: (2) Acute psychosis: (3) Suicidal ideation: (4) History of schizophrenia: (5) Methamphetamine use disorder, severe, dependence: Plan This is a 44-year-old white woman with a history of trauma, mental health and addiction with genetic loading for mental health and addiction issues who presents again with suicidal ideation. 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 1. Patient given monthly INVEGA IM 156mg on 04/04/24. Continue Prozac 40mg daily. Her next monthly injection due on 04/26/24. 2. Will obtain collateral information. 3. Continue individual, group and milieu therapy. 4. Continue every 15 minute checks for safety. 5. Encourage sober living treatment after discharge at the highest level care to which she is willing to commit. 6. Attempt to find appropriate discharge location at this time. 7. Labs ordered with hx of gastric bypass surgery/anemia. Iron studies, Fe, Ca, LFT, D3, folate, B12 8. 21-day hold paperwork filed. 21-day hold hearing held and patient placed on 21-day hold 04/13/2024. 9. Working on identifying information related to possible living arrangements in [place]. She is working with staff on 2 or 3 possibilities surrounding going home to [place]. PDMP PDMP Reviewed: Not Reviewed Involuntary Hold Information 2 96 Hour Hold: 96 Hour Involuntary Admission: Yes 96 Hour Hold Ending Date: 04/12/24 96 Hour Hold Ending Time: 00:01 Other Hold: Hold End Date: 04/12/24 Attestations NPU 2 Medical Necessity Statement*: Inpatient hospitalization is medically necessary and the clinically appropriate intervention at this time. We will monitor medications and make changes as indicated. Patient's likely length of stay is 2-4 days. Coding Level of Care Code Acute Code for g Fwd Diagnoses Depression, unspecified F32.A Acute psychosis F23 Suicidal ideation R45.851 History of schizophrenia Z86.59 Methamphetamine use disorder, severe, dependence F15.20
[2024-04-14 17:23] LABS: Glucose Point of Care 145 mg/dL (70-110)
[2024-04-14] MEDS: acetaminophen 325 mg Tablet 650 MG PO (17:52)
[2024-04-14 19:58] LABS: Glucose Point of Care 148 mg/dL (70-110)
[2024-04-14 20:01] VITALS: BP 103/58; PULSE 79; RESP 18; TEMP 36.9; O2SAT 98
[2024-04-14] MEDS: hyDROXYzine 25 mg Capsule 50 MG PO (22:05)
[2024-04-14] MEDS: trazodone 50 mg Tablet PO (22:05)
[2024-04-15 06:00] VITALS: BP 113/73; PULSE 69; RESP 17; TEMP 36.7; O2SAT 98
[2024-04-15] MEDS: nicotine 21 mg Patch 1 PATCH TRANSDERMA (06:33)
[2024-04-15 07:12] LABS: Glucose Point of Care 113 mg/dL (70-110)
[2024-04-15] MEDS: acetaminophen 325 mg Tablet 650 MG PO (07:27)
[2024-04-15] MEDS: oxybutynin 5 mg Tablet PO (07:28)
[2024-04-15] MEDS: pantoprazole DR 40 mg Tablet PO (07:28)
[2024-04-15] MEDS: fluoxetine 20 mg Capsule 40 MG PO (07:28)
[2024-04-15] MEDS: OLANZapine 5 mg ODT PO ×2 (07:29→23:43)
[2024-04-15] MEDS: fluticasone nasal spray 16gm Btl 2 SPRAY INTRANASAL (07:29)
[2024-04-15 11:18] LABS: Glucose Point of Care 77 mg/dL (70-110)
--- NOTE | 2024-04-15 12:23 | P.NPUPN_ITS ---
Subjective NPU 2 Subjective: Patient presented today reporting that she is doing okay. We discussed the treatment team working on her airfare with her as she determined she does have plenty of money on her card to utilize any of the options that the treatment team validated for return to [place]. She is likely leaning towards the option of moving in with her significant other however the options still exist for her to have her own place as well. She denied any side effects of the medication were trying to make sure that she has access to medication and understands how to transition to [place] Medicaid [place]. Mental Status Exam 2 MSE Comments: This is an overweight versus obese white female in hospital scrubs with limited grooming but adequate eye contact. No abnormal movements except for mild psychomotor retardation. Cooperative with exam in mild to moderate distress. Speech was mostly decreased rate and volume. Mood described as anxious about what she is going to do, affect is congruent and occasionally tearful. Thought process, organized. Thought content: patient endorsed recent suicidal but denied homicidal ideation, no clear paranoia reported, but some paranoia and guardedness noted, she denies current auditory or visual hallucinations. Attention and concentration are intact and memory appeared mostly reliable , but none were formally tested. She is alert and oriented x 3. Insight and judgment are impaired. Impulse control is impaired. Vitals/I&O/Wt Last Vital Signs Temp 98.1 F 04/15/24 06:00 Pulse 69 04/15/24 06:00 Resp 17 04/15/24 06:00 BP 113/73 04/15/24 06:00 Pulse Ox 98 04/15/24 06:00 O2 Del Method Room Air 04/15/24 06:00 Data NPU 04/04/24 10:34 04/04/24 10:34 A&P Assessment and plan (1) Depression, unspecified: (2) Acute psychosis: (3) Suicidal ideation: (4) History of schizophrenia: (5) Methamphetamine use disorder, severe, dependence: Plan This is a 44-year-old white woman with a history of trauma, mental health and addiction with genetic loading for mental health and addiction issues who presents again with suicidal ideation. 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 1. Patient given monthly INVEGA IM 156mg on 04/04/24. Continue Prozac 40mg daily. Her next monthly injection due on 05/04/24. 2. Will obtain collateral information. 3. Continue individual, group and milieu therapy. 4. Continue every 15 minute checks for safety. 5. Encourage sober living treatment after discharge at the highest level care to which she is willing to commit. 6. Attempt to find appropriate discharge location at this time. 7. Labs ordered with hx of gastric bypass surgery/anemia. Iron studies, Fe, Ca, LFT, D3, folate, B12 8. 21-day hold paperwork filed. 21-day hold hearing held and patient placed on 21-day hold 04/13/2024. 9. Working on identifying information related to possible living arrangements in [place]. She is working with staff on 2 or 3 possibilities surrounding going home to [place]. Working on plane ticket with partner meeting her at airport beginning of the week. PDMP PDMP Reviewed: Not Reviewed Involuntary Hold Information 2 96 Hour Hold: 96 Hour Involuntary Admission: Yes 96 Hour Hold Ending Date: 04/12/24 96 Hour Hold Ending Time: 00:01 Other Hold: Hold End Date: 04/12/24 Attestations NPU 2 Medical Necessity Statement*: Inpatient hospitalization is medically necessary and the clinically appropriate intervention at this time. We will monitor medications and make changes as indicated. Patient's likely length of stay is 2-4 days. Coding Level of Care Code Acute Code for Chg Fwd Diagnoses Depression, unspecified F32.A Acute psychosis F23 Suicidal ideation R45.851 History of schizophrenia Z86.59 Methamphetamine use disorder, severe, dependence F15.20
[2024-04-15] MEDS: nicotine 4 mg lozenge MUCOUS MEM ×3 (12:51→22:57)
[2024-04-15 14:00] VITALS: BP 110/73; PULSE 65; RESP 16; TEMP 36.8; O2SAT 98
[2024-04-15 17:08] LABS: Glucose Point of Care 121 mg/dL (70-110)
[2024-04-15 19:59] LABS: Glucose Point of Care 121 mg/dL (70-110)
[2024-04-15 20:04] VITALS: BP 103/66; PULSE 90; RESP 17; TEMP 37.2; O2SAT 97
[2024-04-15] MEDS: hyDROXYzine 25 mg Capsule 50 MG PO (21:04)
[2024-04-16 06:00] VITALS: BP 108/58; PULSE 70; RESP 18; TEMP 37; O2SAT 98
[2024-04-16 07:29] LABS: Glucose Point of Care 99 mg/dL (70-110)
[2024-04-16] MEDS: fluoxetine 20 mg Capsule 40 MG PO (08:36)
[2024-04-16] MEDS: pantoprazole DR 40 mg Tablet PO (08:36)
[2024-04-16] MEDS: oxybutynin 5 mg Tablet PO (08:36)
[2024-04-16] MEDS: nicotine 4 mg lozenge MUCOUS MEM ×4 (08:37→16:47)
[2024-04-16 11:15] LABS: Glucose Point of Care 146 mg/dL (70-110)
[2024-04-16] MEDS: insulin lispro 100 unit/1 mL SUBCUT ×2 (13:11→16:48)
[2024-04-16 14:00] VITALS: BP 98/61; PULSE 80; RESP 16; TEMP 37.2; O2SAT 97
--- NOTE | 2024-04-16 15:40 | W.PM.NPUPNS ---
Subjective NPU Subjective: Patient presented today reporting that things are going okay. She identifies that her previous plan a was to go and live with her reported significant other but she has not ruled out the option of her going to an independent living situation and she has the economic resources to do either. She reports that the medication is working well and she denied any side effects of medication. Mental Status Exam MSE Comments: This is an overweight versus obese white female in hospital scrubs with limited grooming but adequate eye contact. No abnormal movements except for mild psychomotor retardation. Cooperative with exam in mild to moderate distress. Speech was mostly decreased rate and volume. Mood described as anxious about what she is going to do, affect is congruent and occasionally tearful. Thought process, organized. Thought content: patient endorsed recent suicidal but denied homicidal ideation, no clear paranoia reported, but some paranoia and guardedness noted, she denies current auditory or visual hallucinations. Attention and concentration are intact and memory appeared mostly reliable , but none were formally tested. She is alert and oriented x 3. Insight and judgment are impaired. Impulse control is impaired. Vitals/I&O/Wt Last Vital Signs Temp 98.6 F 04/16/24 06:00 Pulse 70 04/16/24 06:00 Resp 18 04/16/24 06:00 BP 108/58 04/16/24 06:00 Pulse Ox 98 04/16/24 06:00 O2 Del Method Room Air 04/16/24 06:00 Data NPU 04/04/24 10:34 04/04/24 10:34 A&P Assessment and plan (1) Depression, unspecified: (2) Acute psychosis: (3) Suicidal ideation: (4) History of schizophrenia: (5) Methamphetamine use disorder, severe, dependence: Plan This is a 44-year-old white woman with a history of trauma, mental health and addiction with genetic loading for mental health and addiction issues who presents again with suicidal ideation. 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 1. Patient given monthly INVEGA IM 156mg on 04/04/24. Continue Prozac 40mg daily. Her next monthly injection due on 05/04/24. 2. Will obtain collateral information. 3. Continue individual, group and milieu therapy. 4. Continue every 15 minute checks for safety. 5. Encourage sober living treatment after discharge at the highest level care to which she is willing to commit. 6. Attempt to find appropriate discharge location at this time. 7. Labs ordered with hx of gastric bypass surgery/anemia. Iron studies, Fe, Ca, LFT, D3, folate, B12 8. 21-day hold paperwork filed. 21-day hold hearing held and patient placed on 21-day hold 04/13/2024. 9. Working on identifying information related to possible living arrangements in [place]. She is working with staff on 2 or 3 possibilities surrounding going home to [place]. Patient obtained plane ticket for the early afternoon of 04/21/2024. She is exploring 2 options for residential considerations when she arrives. PDMP PDMP Reviewed: Not Reviewed Involuntary Hold Information 96 Hour Hold: 96 Hour Involuntary Admission: Yes 96 Hour Hold Ending Date: 04/12/24 96 Hour Hold Ending Time: 00:01 Other Hold: Hold End Date: 04/12/24 Attestations NPU Medical Necessity Statement*: Inpatient hospitalization is medically necessary and the clinically appropriate intervention at this time. We will monitor medications and make changes as indicated. Patient's likely length of stay is 5 days. Coding Level of Care Code Acute Code for Chg Fwd Diagnoses Depression, unspecified F32.A Acute psychosis F23 Suicidal ideation R45.851 History of schizophrenia Z86.59 Methamphetamine use disorder, severe, dependence F15.20
[2024-04-16 16:45] LABS: Glucose Point of Care 233 mg/dL (70-110)
[2024-04-16 21:12] LABS: Glucose Point of Care 114 mg/dL (70-110)
--- NOTE | 2024-04-16 21:14 | PC.NURSE ---
RESTING IN BED, AROUSES TO VOICE. BLOOD GLUCOSE WAS 72, PT DRANK JUICE AND BLOOD GLUCOSE CAME UP TO 114. PT DENIES SI/HI AND AVH AT THIS TIME. PT AFFECT IS FLAT. SUPPORT VOICED.
[2024-04-16 22:00] VITALS: BP 115/68; PULSE 91; RESP 18; TEMP 36.5; O2SAT 97
[2024-04-17] MEDS: nicotine 4 mg lozenge MUCOUS MEM ×6 (05:15→17:31)
[2024-04-17 06:00] VITALS: BP 120/73; PULSE 68; RESP 18; TEMP 37.1; O2SAT 97
[2024-04-17] MEDS: hyDROXYzine 25 mg Capsule 50 MG PO (06:29)
[2024-04-17 07:13] LABS: Glucose Point of Care 102 mg/dL (70-110)
[2024-04-17] MEDS: oxybutynin 5 mg Tablet PO (07:44)
[2024-04-17] MEDS: fluoxetine 20 mg Capsule 40 MG PO (07:44)
[2024-04-17] MEDS: pantoprazole DR 40 mg Tablet PO (07:44)
[2024-04-17] MEDS: OLANZapine 5 mg ODT PO ×2 (09:29→18:16)
--- NOTE | 2024-04-17 11:32 | W.PM.NPUPNS ---
Subjective NPU Subjective: Patient presented today reporting that things are going okay. She reports that she feels like her significant other is not responding which she reports at this point maybe that is for the best and that she really should look at the [facility] am sent program and really establish a new life for herself. She said her mother called today and was expressing feeling emotional as she talked about going back to [place] and she struggled with the fact that her mom was feeling some sort of way when she feels like she has been mean and unkind since she has been here and so she continues to feel committed towards returning to [place] and working 1 of these programs. She denied any side effects to her medications. Mental Status Exam MSE Comments: This is an overweight versus obese white female in hospital scrubs with limited grooming but adequate eye contact. No abnormal movements except for mild psychomotor retardation. Cooperative with exam in mild to moderate distress. Speech was mostly decreased rate and volume. Mood described as I think I am ready to go, affect is congruent. Thought process, organized. Thought content: patient endorsed recent suicidal but denied homicidal ideation, no clear paranoia reported, but some paranoia and guardedness noted, she denies current auditory or visual hallucinations. Attention and concentration are intact and memory appeared mostly reliable , but none were formally tested. She is alert and oriented x 3. Insight and judgment are impaired. Impulse control is impaired. Vitals/I&O/Wt Last Vital Signs Temp 98.8 F 04/17/24 06:00 Pulse 68 04/17/24 06:00 Resp 18 04/17/24 06:00 BP 120/73 04/17/24 06:00 Pulse Ox 97 04/17/24 06:00 O2 Del Method Room Air 04/16/24 14:00 04/16/24 04/17/24 04/17/24 22:59 06:59 14:59 Intake Total 240 / 240 Balance 240 / 240 Data NPU 04/04/24 10:34 04/04/24 10:34 A&P Assessment and plan (1) Depression, unspecified: (2) Acute psychosis: (3) Suicidal ideation: (4) History of schizophrenia: (5) Methamphetamine use disorder, severe, dependence: Plan This is a 44-year-old white woman with a history of trauma, mental health and addiction with genetic loading for mental health and addiction issues who presents again with suicidal ideation. 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 1. Patient given monthly INVEGA IM 156mg on 04/04/24. Continue Prozac 40mg daily. Her next monthly injection due on 05/04/24. 2. Will obtain collateral information. 3. Continue individual, group and milieu therapy. 4. Continue every 15 minute checks for safety. 5. Encourage sober living treatment after discharge at the highest level care to which she is willing to commit. 6. Attempt to find appropriate discharge location at this time. 7. Labs ordered with hx of gastric bypass surgery/anemia. Iron studies, Fe, Ca, LFT, D3, folate, B12 8. 21-day hold paperwork filed. 21-day hold hearing held and patient placed on 21-day hold 04/13/2024. 9. Working on identifying information related to possible living arrangements in [place]. She is working with staff on 2 or 3 possibilities surrounding going home to [place]. Patient obtained plane ticket for the early afternoon of 04/21/2024. She is exploring 2 options for residential considerations when she arrives. Starting to lean towards the I am sent program which would be independent from the suppose it significant other. PDMP PDMP Reviewed: Not Reviewed Involuntary Hold Information 96 Hour Hold: 96 Hour Involuntary Admission: Yes 96 Hour Hold Ending Date: 04/12/24 96 Hour Hold Ending Time: 00:01 Other Hold: Hold End Date: 04/12/24 Attestations NPU Medical Necessity Statement*: Inpatient hospitalization is medically necessary and the clinically appropriate intervention at this time. We will monitor medications and make changes as indicated. Patient's likely length of stay is 4 days. Coding Level of Care Code Acute Code for Chg Fwd Diagnoses Depression, unspecified F32.A Acute psychosis F23 Suicidal ideation R45.851 History of schizophrenia Z86.59 Methamphetamine use disorder, severe, dependence F15.20
[2024-04-17 11:40] LABS: Glucose Point of Care 76 mg/dL (70-110)
[2024-04-17 14:00] VITALS: BP 105/67; PULSE 98; RESP 16; TEMP 36.9; O2SAT 98
[2024-04-17 17:00] LABS: Glucose Point of Care 90 mg/dL (70-110)
[2024-04-17] MEDS: haloperidol 5 mg Tablet PO (18:49)
[2024-04-17 20:00] VITALS: BP 95/56; PULSE 85; RESP 15; TEMP 36.5; O2SAT 98
[2024-04-17 20:37] LABS: Glucose Point of Care 135 mg/dL (70-110)
[2024-04-17 22:00] VITALS: BP 95/56; PULSE 85; RESP 15; TEMP 36.5; O2SAT 98
[2024-04-18 06:00] VITALS: BP 107/65; PULSE 59; RESP 16; TEMP 36.8; O2SAT 97
[2024-04-18 07:17] LABS: Glucose Point of Care 114 mg/dL (70-110)
[2024-04-18] MEDS: nicotine 4 mg lozenge MUCOUS MEM ×6 (08:28→20:25)
[2024-04-18] MEDS: pantoprazole DR 40 mg Tablet PO (08:28)
[2024-04-18] MEDS: fluoxetine 20 mg Capsule 40 MG PO (08:28)
[2024-04-18] MEDS: oxybutynin 5 mg Tablet PO (08:28)
[2024-04-18] MEDS: OLANZapine 5 mg ODT PO (09:01)
[2024-04-18 11:29] LABS: Glucose Point of Care 113 mg/dL (70-110)
[2024-04-18 14:00] VITALS: BP 102/61; PULSE 77; RESP 16; TEMP 36.8; O2SAT 100
--- NOTE | 2024-04-18 15:26 | P.NPUPN_ITS ---
Subjective NPU 2 Subjective: Patient presented today reporting that she is looking forward to returning to [place]. We had a fairly robust conversation about boundaries and how 1 may empathize with someone that you care about but that you can set boundaries to protect oneself from their failures. She reports the medication is going fine and that she is looking forward to going to [place] but she continues to report a greater likelihood that she utilizes the residential opportunities in [place] independent of her [facility]. She denied any side effects to the medications. Mental Status Exam 2 MSE Comments: This is an overweight versus obese white female in hospital scrubs with limited grooming but adequate eye contact. No abnormal movements except for mild psychomotor retardation. Cooperative with exam in mild to moderate distress. Speech was mostly decreased rate and volume. Mood described as I think I am ready to go, affect is congruent. Thought process, organized. Thought content: patient endorsed recent suicidal but denied homicidal ideation, no clear paranoia reported, but some paranoia and guardedness noted, she denies current auditory or visual hallucinations. Attention and concentration are intact and memory appeared mostly reliable , but none were formally tested. She is alert and oriented x 3. Insight and judgment are impaired. Impulse control is impaired. Vitals/I&O/Wt Last Vital Signs Temp 98.2 F 04/18/24 14:00 Pulse 77 04/18/24 14:00 Resp 16 04/18/24 14:00 BP 102/61 04/18/24 14:00 Pulse Ox 100 04/18/24 14:00 O2 Del Method Room Air 04/18/24 14:00 Weight last 48 hrs Weight 86.183 kg Data NPU 04/04/24 10:34 04/04/24 10:34 A&P Assessment and plan (1) Depression, unspecified: (2) Acute psychosis: (3) Suicidal ideation: (4) History of schizophrenia: (5) Methamphetamine use disorder, severe, dependence: Plan This is a 44-year-old white woman with a history of trauma, mental health and addiction with genetic loading for mental health and addiction issues who presents again with suicidal ideation. 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 1. Patient given monthly INVEGA IM 156mg on 04/04/24. Continue Prozac 40mg daily. Her next monthly injection due on 05/04/24. 2. Will obtain collateral information. 3. Continue individual, group and milieu therapy. 4. Continue every 15 minute checks for safety. 5. Encourage sober living treatment after discharge at the highest level care to which she is willing to commit. 6. Attempt to find appropriate discharge location at this time. 7. Labs ordered with hx of gastric bypass surgery/anemia. Iron studies, Fe, Ca, LFT, D3, folate, B12 8. 21-day hold paperwork filed. 21-day hold hearing held and patient placed on 21-day hold 04/13/2024. 9. Working on identifying information related to possible living arrangements in [place]. She is working with staff on 2 or 3 possibilities surrounding going home to [place]. Patient obtained plane ticket for the early afternoon of 04/21/2024. She is exploring 2 options for residential considerations when she arrives. Starting to lean towards the I am sent program which would be independent from the suppose it significant other. PDMP PDMP Reviewed: Not Reviewed Involuntary Hold Information 2 96 Hour Hold: 96 Hour Involuntary Admission: Yes 96 Hour Hold Ending Date: 04/12/24 96 Hour Hold Ending Time: 00:01 Other Hold: Hold End Date: 04/12/24 Attestations NPU 2 Medical Necessity Statement*: Inpatient hospitalization is medically necessary and the clinically appropriate intervention at this time. We will monitor medications and make changes as indicated. Patient's likely length of stay is 3 days. Coding Level of Care Code Acute Code for Chg Fwd Diagnoses Depression, unspecified F32.A Acute psychosis F23 Suicidal ideation R45.851 History of schizophrenia Z86.59 Methamphetamine use disorder, severe, dependence F15.20
[2024-04-18] MEDS: haloperidol 5 mg Tablet PO (15:53)
[2024-04-18 16:53] LABS: Glucose Point of Care 195 mg/dL (70-110)
[2024-04-18] MEDS: insulin lispro 100 unit/1 mL SUBCUT (17:14)
[2024-04-18 19:49] LABS: Glucose Point of Care 229 mg/dL (70-110)
[2024-04-18] MEDS: trazodone 50 mg Tablet PO (20:25)
[2024-04-18] MEDS: hyDROXYzine 25 mg Capsule 50 MG PO (20:25)
[2024-04-18 20:54] LABS: Glucose Point of Care 77 mg/dL (70-110)
[2024-04-18 22:00] VITALS: BP 102/60; PULSE 89; RESP 18; TEMP 36.4; O2SAT 98
[2024-04-19 06:00] VITALS: BP 119/79; PULSE 90; RESP 16; O2SAT 95
[2024-04-19] MEDS: nicotine 4 mg lozenge MUCOUS MEM ×5 (06:12→16:42)
[2024-04-19 07:39] LABS: Glucose Point of Care 77 mg/dL (70-110)
[2024-04-19] MEDS: pantoprazole DR 40 mg Tablet PO (07:51)
[2024-04-19] MEDS: oxybutynin 5 mg Tablet PO (07:51)
[2024-04-19] MEDS: fluoxetine 20 mg Capsule 40 MG PO (07:51)
--- NOTE | 2024-04-19 07:52 | PC.NURSE ---
REFUSED SCHEDULED NASAL SPRAY
[2024-04-19 12:09] LABS: Glucose Point of Care 136 mg/dL (70-110)
[2024-04-19] MEDS: hyDROXYzine 25 mg Capsule 50 MG PO (13:23)
--- NOTE | 2024-04-19 13:24 | PC.NURSE ---
PRN VISTARIL 50 MG GIVEN PO PER PT C/O STATED ANXIETY. NO OUTWARD S/S OF ANXIETY NOTED CURRENTLY
[2024-04-19 14:00] VITALS: BP 92/57; PULSE 92; RESP 17; TEMP 36.6; O2SAT 99
--- NOTE | 2024-04-19 14:16 | P.NPUPN_ITS ---
Subjective NPU 2 Subjective: Patient presented today reporting that things are going positively. She still not able to reach her significant other continues to endorse a commitment to utilizing the resources that have been obtained to orchestrate her best outcome. She continued to report commitment to sobriety and the goal of not allowing past patterns to be her future reality. She continues to be optimistic about discharge on Friday. She denies any side effects to her medications. Mental Status Exam 2 MSE Comments: This is an overweight versus obese white female in hospital scrubs with limited grooming but adequate eye contact. No abnormal movements except for mild psychomotor retardation. Cooperative with exam in mild to moderate distress. Speech was mostly decreased rate and volume. Mood described as I think I am ready to go, affect is congruent. Thought process, organized. Thought content: patient endorsed recent suicidal but denied homicidal ideation, no clear paranoia reported, but some paranoia and guardedness noted, she denies current auditory or visual hallucinations. Attention and concentration are intact and memory appeared mostly reliable , but none were formally tested. She is alert and oriented x 3. Insight and judgment are impaired. Impulse control is impaired. Vitals/I&O/Wt Last Vital Signs Temp 97.6 F 04/18/24 22:00 Pulse 90 04/19/24 06:00 Resp 16 04/19/24 06:00 BP 119/79 04/19/24 06:00 Pulse Ox 95 04/19/24 06:00 O2 Del Method Room Air 04/18/24 14:00 Weight last 48 hrs Weight 86.183 kg Data NPU 04/04/24 10:34 04/04/24 10:34 A&P Assessment and plan (1) Depression, unspecified: (2) Acute psychosis: (3) Suicidal ideation: (4) History of schizophrenia: (5) Methamphetamine use disorder, severe, dependence: Plan This is a 44-year-old white woman with a history of trauma, mental health and addiction with genetic loading for mental health and addiction issues who presents again with suicidal ideation. 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 1. Patient given monthly INVEGA IM 156mg on 04/04/24. Continue Prozac 40mg daily. Her next monthly injection due on 05/04/24. 2. Will obtain collateral information. 3. Continue individual, group and milieu therapy. 4. Continue every 15 minute checks for safety. 5. Encourage sober living treatment after discharge at the highest level care to which she is willing to commit. 6. Patient reports feeling confident about the discharge opportunities/options that she has. Will go to [place] and catch a flight to [place] Friday. 7. Labs ordered with hx of gastric bypass surgery/anemia. Iron studies, Fe, Ca, LFT, D3, folate, B12 8. 21-day hold paperwork filed. 21-day hold hearing held and patient placed on 21-day hold 04/13/2024. 9. Working on identifying information related to possible living arrangements in [place]. She is working with staff on 2 or 3 possibilities surrounding going home to [place]. Patient obtained plane ticket for the early afternoon of 04/21/2024. She is exploring 2 options for residential considerations when she arrives. Starting to lean towards the I am sent program which would be independent from the suppose it significant other. PDMP PDMP Reviewed: Not Reviewed Involuntary Hold Information 2 96 Hour Hold: 96 Hour Involuntary Admission: Yes 96 Hour Hold Ending Date: 04/12/24 96 Hour Hold Ending Time: 00:01 Other Hold: Hold End Date: 04/12/24 Attestations NPU 2 Medical Necessity Statement*: Inpatient hospitalization is medically necessary and the clinically appropriate intervention at this time. We will monitor medications and make changes as indicated. Patient's likely length of stay is 2 days. Coding Level of Care Code Acute Code for Chg Fwd Diagnoses Depression, unspecified F32.A Acute psychosis F23 Suicidal ideation R45.851 History of schizophrenia Z86.59 Methamphetamine use disorder, severe, dependence F15.20
[2024-04-19 17:34] LABS: Glucose Point of Care 78 mg/dL (70-110)
[2024-04-19 19:36] LABS: Glucose Point of Care 117 mg/dL (70-110)
[2024-04-19 20:39] VITALS: BP 100/62; PULSE 83; RESP 18; TEMP 36.6; O2SAT 98
[2024-04-20 06:00] VITALS: BP 106/75; PULSE 77; RESP 18; TEMP 36.9; O2SAT 97
[2024-04-20] MEDS: nicotine 4 mg lozenge MUCOUS MEM ×7 (06:50→17:38)
[2024-04-20 07:30] LABS: Glucose Point of Care 82 mg/dL (70-110)
[2024-04-20] MEDS: pantoprazole DR 40 mg Tablet PO (07:41)
[2024-04-20] MEDS: fluoxetine 20 mg Capsule 40 MG PO (07:42)
[2024-04-20] MEDS: oxybutynin 5 mg Tablet PO (07:42)
[2024-04-20 11:25] LABS: Glucose Point of Care 116 mg/dL (70-110)
[2024-04-20 14:00] VITALS: BP 145/90; PULSE 92; RESP 18; O2SAT 100
[2024-04-20 16:47] LABS: Glucose Point of Care 146 mg/dL (70-110)
[2024-04-20] MEDS: insulin lispro 100 unit/1 mL SUBCUT (17:01)
[2024-04-20] MEDS: OLANZapine 5 mg ODT PO (18:01)
[2024-04-20 19:40] VITALS: BP 90/53; PULSE 73; RESP 18; TEMP 37.1; O2SAT 99
[2024-04-20 19:54] LABS: Glucose Point of Care 127 mg/dL (70-110)
--- NOTE | 2024-04-20 20:16 | P.NPUPN_ITS ---
Subjective NPU 2 Subjective: Patient presented today reporting that things are going well. She is very optimistic about discharge tomorrow and going back to [place]. She continues to report resolved in wanting to maintain her sobriety and her independence. She has had some challenging but healthy conversations with her mother in the past few days and that even after the rushes of emotions she has been able to connect with the reality that based on history going to [place] and having stable independence with what ever assistance she can have while sober and all medication presents her greatest chance for doing well versus the very complicated challenging relationship that exist with her mother who she reports has her own issues and this is somewhat apparent and observing them interacting. She denies any side effects to the medication. Mental Status Exam 2 MSE Comments: This is an overweight versus obese white female in hospital scrubs with limited grooming but adequate eye contact. No abnormal movements except for mild psychomotor retardation. Cooperative with exam in mild to moderate distress. Speech was mostly decreased rate and volume. Mood described as I think I am ready to go, affect is congruent. Thought process, organized. Thought content: patient endorsed recent suicidal but denied homicidal ideation, no clear paranoia reported, but some paranoia and guardedness noted, she denies current auditory or visual hallucinations. Attention and concentration are intact and memory appeared mostly reliable , but none were formally tested. She is alert and oriented x 3. Insight and judgment are impaired. Impulse control is impaired. Vitals/I&O/Wt Last Vital Signs Temp 98.7 F 04/20/24 19:40 Pulse 73 04/20/24 19:40 Resp 18 04/20/24 19:40 BP 90/53 04/20/24 19:40 Pulse Ox 99 04/20/24 19:40 O2 Del Method Room Air 04/20/24 19:40 Data NPU 04/04/24 10:34 04/04/24 10:34 A&P Assessment and plan (1) Depression, unspecified: (2) Acute psychosis: (3) Suicidal ideation: (4) History of schizophrenia: (5) Methamphetamine use disorder, severe, dependence: Plan This is a 44-year-old white woman with a history of trauma, mental health and addiction with genetic loading for mental health and addiction issues who presents again with suicidal ideation. 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 1. Patient given monthly INVEGA IM 156mg on 04/04/24. Continue Prozac 40mg daily. Her next monthly injection due on 05/04/24. 2. Will obtain collateral information. 3. Continue individual, group and milieu therapy. 4. Continue every 15 minute checks for safety. 5. Encourage sober living treatment after discharge at the highest level care to which she is willing to commit. 6. Patient reports feeling confident about the discharge opportunities/options that she has. Will go to [place] and catch a flight to [place] Friday. 7. Labs ordered with hx of gastric bypass surgery/anemia. Iron studies, Fe, Ca, LFT, D3, folate, B12 8. 21-day hold paperwork filed. 21-day hold hearing held and patient placed on 21-day hold 04/13/2024. 9. Working on identifying information related to possible living arrangements in [place]. She is working with staff on 2 or 3 possibilities surrounding going home to [place]. Patient obtained plane ticket for the early afternoon of 04/21/2024. She is exploring 2 options for residential considerations when she arrives. Starting to lean towards the I am sent program which would be independent from the suppose it significant other. PDMP PDMP Reviewed: Not Reviewed Involuntary Hold Information 2 96 Hour Hold: 96 Hour Involuntary Admission: Yes 96 Hour Hold Ending Date: 04/12/24 96 Hour Hold Ending Time: 00:01 Other Hold: Hold End Date: 04/12/24 Attestations NPU 2 Medical Necessity Statement*: Inpatient hospitalization is medically necessary and the clinically appropriate intervention at this time. We will monitor medications and make changes as indicated. Patient's likely length of stay is 1 days. Coding Level of Care Code Acute Code for Chg Fwd Diagnoses Depression, unspecified F32.A Acute psychosis F23 Suicidal ideation R45.851 History of schizophrenia Z86.59 Methamphetamine use disorder, severe, dependence F15.20
[2024-04-21] MEDS: hyDROXYzine 25 mg Capsule 50 MG PO (03:53)
[2024-04-21] MEDS: nicotine 4 mg lozenge MUCOUS MEM ×3 (03:53→08:04)
[2024-04-21 06:00] VITALS: BP 111/73; PULSE 53; RESP 20; TEMP 36.8; O2SAT 100
[2024-04-21 07:31] VITALS: BP 111/73; PULSE 53; RESP 20; TEMP 36.8; O2SAT 100
[2024-04-21] MEDS: oxybutynin 5 mg Tablet PO (08:03)
[2024-04-21] MEDS: pantoprazole DR 40 mg Tablet PO (08:03)
[2024-04-21] MEDS: fluoxetine 20 mg Capsule 40 MG PO (08:03)
--- NOTE | 2024-04-21 09:01 | DCPLANNER ---
IIMM was given to pt and right explained and copy placed in file.
[2024-04-21 09:07] LABS: Glucose Point of Care 81 mg/dL (70-110)
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
== END 2024-04-21 11:10 | disposition home or self-care (01) | DRG 885 ==
LOC: ER 11:02 → NP 11:53
PROVIDERS: Internal Medicine; Admitting Provider Psychiatry & Neurology Psychiatry; Emergency Provider Emergency Medicine; Visit Provider Psychiatry & Neurology Psychiatry
DX: F20.9 Schizophrenia, unspecified (principal); R45.851 Suicidal ideations; F15.20 Other stimulant dependence, uncomplicated; Z59.00 Homelessness unspecified; Z87.820 Personal history of traumatic brain injury; D64.9 Anemia, unspecified; Z98.84 Bariatric surgery status; E66.9 Obesity, unspecified; Z68.30 Body mass index [BMI] 30.0-30.9, adult
CPT/HCPCS: 12345; 36415; 36416; 80053; 80076; 80306; 80307; 81001; 81025; 82306; 82310; 82607; 82728; 82746; 82962; 83540; 83550; 84443; 85025; 86677; 87637; 93005; 96365; 96372; 97150; 97165; 99285; J1756; J1815; Q0162